=== PATIENT | female | born 1980 | race Caucasian/White ===

== ENCOUNTER → 2020-09-16 15:07 | Outpatient (CLI) | payer OTHER, SELFPAY ==
[2020-09-16 18:07] LABS: CRP < 2.90 mg/L (0.0-3.0)
[2020-09-19 16:08] LABS: Endomysial Antibody IgA Negative (Negative)
[2020-09-19 16:48] LABS: Immunoglobulin A 290 mg/dL (87-352); t-Transglutaminase IgA <2 U/mL (0-3)
== END ==
PROVIDERS: PCP Family Medicine; Referring Provider Internal Medicine Gastroenterology; Visit Provider Internal Medicine Gastroenterology
DX: R19.7 Diarrhea, unspecified (principal)
CPT/HCPCS: 36415; 82784; 83516; 86140; 86255

== ENCOUNTER 2021-10-13 11:00 | Emergency (ER) | payer OTHER, SELFPAY ==
[2021-10-13 11:01] VITALS: BP 153/87; PULSE 77; RESP 13; TEMP 35.2; O2SAT 97; BMI 42.7
--- NOTE | 2021-10-13 11:53 | RAD_ITS ---
STUDY: X-RAY CHEST REASON FOR EXAM: Female, 41 years old. Chest pain and shortness of breath. TECHNIQUE: PA and lateral views of the chest. COMPARISON: None. FINDINGS: EKG electrodes are seen. Mild elevation of the anterior aspect of the right hemidiaphragm. Calcified granulomas. There is no demonstrated pleural abnormality. Normal size heart. Normal mediastinum and dulce. Normal visualized pulmonary arteries. Normal visualized aortic arch and descending thoracic aorta. There are degenerative changes of the visualized thoracic spine. Normal visualized ribs, clavicles, and shoulders. There is no demonstrated abnormality of the visualized soft tissue structures of the upper abdomen. RAD/Chest PA and Lateral IMPRESSION: Normal x-ray examination of the chest. Electronically Signed: Kojo Cornejo MD at 12:27 EST ,
--- NOTE | 2021-10-13 11:53 | EKG12_ITS ---
Test Reason : CP Blood Pressure : / mmHG Vent. Rate : 072 BPM Atrial Rate : 072 BPM P-R Int : 144 ms QRS Dur : 078 ms QT Int : 396 ms P-R-T Axes : 031 030 025 degrees QTc Int : 433 ms Normal sinus rhythm Normal ECG Confirmed by LACHELLE JEAN, GENARO ([id number]), graphic editor ALICIA CARDENAS ([id number]) on 10/16/2021 11:12:00 AM Referred By: LEON/DOC Confirmed By:GENARO LAROSE MD
[2021-10-13] MEDS: Dicyclomine 10 MG Capsule 20 MG PO (12:03)
[2021-10-13] MEDS: Ketorolac 15 MG/ML Vial IV (12:03)
[2021-10-13 12:06] VITALS: BP 150/99; PULSE 74; RESP 12; O2SAT 97
--- NOTE | 2021-10-13 12:06 | EDS_ITS ---
HPI History of Present Illness Chief Complaint: Chest Pain Onset/Context/Timing Onset: Weeks (2) Activity at onset: gradual, onset and activity on onset (Random) Timing: Intermittent and Lasts (Couple hours most of the time but since last night, has been there over 12 hours now today) Quality: Positive for Pressure and Stabbing Location: Substernal, Right Parasternal and - (Radiating into right upper back) Worsened By: - (Lying down, stress) Relieved By: - (Taking deep breaths) Associated Symptoms: Positive for Cough and Acid Reflux (I have acid reflux sometimes, I am on omeprazole for it; not necessarily associated with the symptoms though); Negative for Nausea, Vomiting, Diaphoresis, Dyspnea, Fever, Lightheadedness and Palpitations Narrative Narrative: Patient having episodes of chest pain off-and-on for the past 2 weeks. This episode has been there since last night, she said it got worse last night and persisted all morning this morning. It occasionally is pleuritic but for the most part nonpleuritic. She states lying down makes it worse and also when she gets stressed, then she takes some deep breaths and seems to calm down and it eases off. She states since last night and this morning, she has had spasms in her upper abdomen that she states is not really painful but hard to explain. She has however had some sharp pains in her right upper quadrant with a couple of these episodes in the past 2 weeks. She has had a prior cholecystectomy in addition to an appendectomy. She states she had an ablation 8 years ago of an accessory pathway in her heart because she was having bigeminy/PVCs. She has not had any problems since then and no other heart problems. She has had a minor cough for the past few days but not for 2 weeks, it has been rarely productive of a little bit of phlegm but no hemoptysis. She is not a smoker. Prior Similar Symptoms: No Recent Illness/Hospitalization: No CVD Risk Factors: Positive for - (Obese); Negative for Hypertension, Diabetes, Hypercholesterolemia, Family History 1' </=55 and Smoking PE Risk Factors: Negative for Recent Travel/Surgery, Recent Immobilization, Prior DVT or PE, Cancer and OCP + Smoking + >/=35 [facility] Medical History (Updated 10/13/21 @ 13:[address] Kenneth Worthy MD) Anxiety GERD (gastroesophageal reflux disease) Hypothyroid Home Medications L norgest/e.estradiol-e.estrad [Ashlyna] tab 10/13/21 [History Last Taken Unknown] escitalopram oxalate mg 10/13/21 [History Last Taken Unknown] levothyroxine 10/13/21 [History Last Taken Unknown] omeprazole 10/13/21 [History Last Taken Unknown] Allergy/AdvReac Type Severity Reaction Status Date / Time Penicillins AdvReac Hives Verified 10/13/21 11:08 Surgical History History of cardiac radiofrequency ablation Social History Smoking Status: Never smoker ROS ROS ED Constitutional Constitutional ED: Denies chills or fever(s) Eyes Eyes: Denies change in vision or diplopia ENT ENT ED: Denies rhinorrhea or sore throat Cardiovascular Cardiovascular: Reports chest pain; Denies orthopnea or palpitations Respiratory/Chest Respiratory/Chest: Reports cough; Denies dyspnea or orthopnea Gastrointestinal Gastrointestinal: Reports as per HPI and abdominal pain; Denies diarrhea, nausea or vomiting Genitourinary Genitourinary ED: Denies dysuria or hematuria Musculoskeletal Musculoskeletal: Denies back pain or neck pain Integumentary Denies abscess or rash Neurologic Neurologic: Denies headache(s), paresthesias or weakness Psychiatric Psychiatric: Denies anxiety or suicidal thoughts EXAM Physical Exam Const Vital Signs: 10/13/21 11:01 10/13/21 11:10 10/13/21 12:06 Temperature 95.3 F L Temperature Source Temporal Pulse Rate 77 74 Respiratory Rate 13 12 Respiratory Effort Normal Non-Labored Blood Pressure 153/87 H 150/99 H Blood Pressure Mean 109 116 Pulse Ox 97 97 Oxygen Delivery Method Room Air Room Air Positive well nourished, well developed and obese General Appearance ED: well developed and NAD Nutritional Appearance: obese HEENT Reports moist mucous membranes normocephalic and atraumatic Eyes PERRL and EOMs intact bilaterally Neck full ROM and supple Resp normal respiratory effort and clear to auscultation bilaterally Cardio regular rate, regular rhythm and no murmurs Rate: Negative for tachycardic GI non-distended GI Narrative: Mild right upper quadrant and epigastric tenderness no guarding or rebound or Blake's no other areas of tenderness Auscultation: normoactive bowel sounds Palpation: soft Back/Spine no CVA tenderness General Back: other FROM Extremity normal to inspection General Extremety ED: Negative for edema, pulses abnormal or tenderness General Extremity: Negative for edema or pulses abnormal Neuro oriented x3, CN's II-XII intact bilaterally and no sensory deficits noted Sensorium / Orientation: awake and alert Motor Exam: strength 5/5 throughout Psych mental status grossly normal, thought process normal and cooperative Mood & Affect: anxious Skin no rashes or lesions noted and no wounds Heart Score History: Slightly/Non-Suspicious ECG: Normal Age: </= 45 years Risk Factors: 1 or 2 Risk Factors Troponin: </= Normal Limit Score: 1 MDM MDM MDM Narrative Medical decision making narrative: X-ray 2 view interpreted by myself and radiology negative for any acute. The rest of the work-up also unremarkable. While we were waiting for test to return, she was given a Bentyl and IV Toradol for discomfort, she had mild improvement but persistent symptoms; the etiology is unknown but since she is also having simultaneous abdominal symptoms, it is possible this is all GI-related, certainly I am not telling the patient it is for sure but since all of her tests are normal and her PERC score is 0, I do not think she needs further emergent work-up here nor admission to the hospital. I think it is safe for her to follow-up as an outpatient she is in agreement with that plan Also with continuous discomfort last night, and all morning I do not think she needs a second troponin today, the first 1 which is in single digits I think is adequate. Lab Data Attestation: I reviewed the patient's lab results. Labs: Laboratory Results - last 24 hr 10/13/21 10/13/21 11:30 11:30 WBC 8.3 RBC 4.89 Hgb 14.6 Hct 42.9 MCV 87.7 MCH 29.9 MCHC 34.0 RDW Std Deviation 40.1 RDW Coeff of Maggi 12.6 Plt Count 305 MPV 9.7 Immature Gran % (Auto) 0.700 Neut % (Auto) 63.0 Lymph % (Auto) 27.7 [place] % (Auto) 6.8 Eos % (Auto) 1.4 Baso % (Auto) 0.4 Absolute Neuts (auto) 5.3 Absolute Lymphs (auto) 2.31 Nucleated RBC % 0 Sodium 139 Potassium 4.1 Chloride 111 H Carbon Dioxide 25.0 Anion Gap 3 L BUN 10 Creatinine 0.66 Estim Creat Clear Calc 94.91 Est GFR (MDRD) Af Amer 126 Est GFR (MDRD) Non-Af 104 BUN/Creatinine Ratio 15.2 Glucose 84 Calcium 9.3 Total Bilirubin 0.30 AST 42 H ALT 56 Alkaline Phosphatase 58 Troponin I High Sens 4 Total Protein 7.3 Albumin 3.2 Globulin 4.1 Albumin/Globulin Ratio 0.8 L Radiography Diagnostic Testing: Clinical Impression(s) from Imaging Studies Chest X-Ray 10/13/21 11:53 IMPRESSION: Normal x-ray examination of the chest. Electronically Signed: Kojo Cornejo MD at 12:27 EST , EKG Initial EKG: Attestation: I personally reviewed and interpreted this EKG as follows: Interpretation: Sinus Rhythm and No Acute Injury Pattern Comments: Normal EKG Discharge Plan Triage Chief Complaint: Chest Pain ED Provider: Kenneth Worthy Dx/Rx/DC Orders Clinical Impression: Chest pain, unspecified, Intermittent upper abdominal pain Instructions: ED Chest Pain, Noncardiac Prescriptions: No Action levothyroxine 25 mcg tablet RF: 0 omeprazole 20 mg capsule,delayed release(DR/EC) RF: 0 escitalopram oxalate 10 mg tablet RF: 0 L norgest/e.estradiol-e.estrad [Ashlyna] 0.15 mg-30 mcg (84)/10 mcg (7) tablets,dose pack,3 month RF: 0 Primary Care Provider: Karena Alvarez Referrals: Karena Alvarez DO [Primary Care Provider] - 3-5 Days Activity Restrictions/Additional Instructions: Until you follow-up double your daily omeprazole, taking 1 pill in the morning and 1 pill at night. Disposition Disposition: Home, Self Care
[2021-10-13 12:07] LABS: Absolute Lymphocyte Count 2.31 X10^3/uL (0.83-4.51); Absolute Neutrophil Count 5.3 X10^3/uL (2.0-7.7); Basophil# 0.03 X10^3/uL; Basophil% 0.4 % (0-1); Eosinophil# 0.12 X10^3/uL; Eosinophils% 1.4 % (0-5); Hematocrit 42.9 % (37-47); Hemoglobin 14.6 g/dL (12.0-15.0); Lymphocyte # 2.31 X10^3/ul (0.83-4.51); Lymphocyte % 27.7 % (19-41); Mean Corpuscular Hgb 29.9 pg (27.0-32.0); Mean Corpuscular Volume 87.7 fL (81-99); Mean Platelet Vol. 9.7 fl (6.2-12.0); Monocyte# 0.57 X10^3/uL; Monocyte% 6.8 % (0-10); NRBC Flagged by Analyzer 0 % (0-5); Neutrophil # 5.25 X10^3/uL (2.7-7.7); Platelet Count 305 K/mm3 (150-450); RBC Distribution Width CV 12.6 % (11.6-14.6); RBC Distribution Width SD 40.1 fl (35.1-43.9); Red Blood Count 4.89 M/mm3 (4.2-5.4); White Blood Count 8.3 K/mm3 (4.4-11.0)
[2021-10-13 12:19] LABS: ALB/GLOB Ratio 0.8 RATIO (0.9-2.4); AST(SGOT) 42 U/L (15-37); Alanine Aminotransfer ALT/SGPT 56 U/L (13-56); Albumin, Serum 3.2 g/dL (3.2-5.0); Alkaline Phosphatase 58 U/L (45-117); Anion Gap 3 (5-15); BUN 10 mg/dL (7-18); BUN/Creat Ratio 15.2 RATIO (10-20); Calcium,Total 9.3 mg/dL (8.5-10.1); Chloride 111 mmol/L (98-107); Creatinine, Serum 0.66 mg/dL (0.55-1.02); EST Glomerular Filtration Rate 104 mL/min (>60); Est Glom Filt Rate - Afr Amer 126 mL/min (>60); Estimated Creatinine Clearance 94.91 ml/min; Globulin 4.1 g/dL (2.2-4.2); Glucose 84 mg/dL (74-106); Potassium 4.1 mmol/L (3.5-5.1); Protein, Total 7.3 g/dL (6.4-8.2); Sodium Level 139 mmol/L (136-145); Troponin-I HS 4 pg/mL (3.0-54.0)
[2021-10-13] MEDS: Mag Hydrox/Al Hydrox/Simeth 30 ML UDC PO (13:55)
[2021-10-13 13:57] VITALS: BP 154/96; RESP 15; O2SAT 99
== END 2021-10-13 14:11 | disposition home or self-care (01) ==
PROVIDERS: Emergency Provider Emergency Medicine; PCP Family Medicine; Visit Provider Emergency Medicine
DX: R10.10 Upper abdominal pain, unspecified (principal); E66.9 Obesity, unspecified; R07.9 Chest pain, unspecified; K21.9 Gastro-esophageal reflux disease without esophagitis; E03.9 Hypothyroidism, unspecified; F41.9 Anxiety disorder, unspecified
CPT/HCPCS: 71046; 80053; 84484; 85025; 93005; 96374; 99285; A4216

== ENCOUNTER 2022-08-02 06:32 | Day surgery (SDC) | payer OTHER, SELFPAY ==
[2022-07-31 07:46] LABS: Magnesium 1.9 mg/dL (1.6-2.6)
--- NOTE | 2022-08-01 13:16 | PCM.HP.BLA ---
History and Physical Date of Admission: 08/02/22 Pre-Op History and Physical ? HPI: The patient is a 42 year old female presenting for discussion regarding abnormal uterine bleeding, pelvic pain and dysmenorrhea. Patient has been taking Aygestin with minimal improvement over the last few months. Patient would like to proceed with surgical management at this time. ? Pre-operative visit. She is scheduled for TLH, Bilateral salpingectomy, Cysto, for AUB, pelvic pain, dysmenorrhea on 08/02/22. Procedure discussed along with risks, benefits and complications. Other alternatives discussed for management. Consent form signed? Yes. ? ? PAST MEDICAL HISTORY PAST MEDICAL HISTORY Diagnosis Date ? Abdominal pain, right upper quadrant ? ? Biliary dyskinesia 03/09/2010 ? Nausea alone ? ? PVC (premature ventricular contraction) ? ? TIA (transient ischemic attack) ? ? ? PAST SURGICAL HISTORY PAST SURGICAL HISTORY Procedure Laterality Date ? APPENDECTOMY ? ? ? DELIVERY ONLY ? X 2 ? , low transverse ? COLONOSCOPY ? 2009 ? EGD TRANSORAL BIOPSY SINGLE/MULTIPLE ? 02/27/2010 ? EGD TRANSORAL BIOPSY SINGLE/MULTIPLE ? 03/22/10 ? ENDOMETRIAL BX W/WO ENDOCERVIX BX W/O DILAT SPX ? 02/2011 ? DUB ? LAPS SURG CHOLECYSTECTOMY W/CHOLANGIOGRAPHY ? 03/09/2010 ? NOVASURE ? 03/2011 ? ? ? CURRENT MEDICATIONS Current Outpatient Medications Medication Sig Dispense Refill ? oxyCODONE-acetaminophen (PERCOCET) 5-325 mg tablet Take 1 tablet by mouth every 6 hours as needed for pain. FOR PAIN. 15 tablet 0 ? dicyclomine (BENTYL) 20 mg tablet ? ergocalciferol 50,000 unit capsule (VITAMIN D2, DRISDOL) ? hydroCHLOROthiazide (HYDRODIURIL, ESIDRIX) 25 mg tablet 25 mg. ? ? ? lisinopril (ZESTRIL, PRINIVIL) 10 mg tablet 10 mg. ? ? ? lysine 1,000 mg tab ? norethindrone (AYGESTIN) 5 mg tablet take 1 tablet by mouth once daily 30 tablet 5 ? escitalopram oxalate (LEXAPRO) 10 mg tablet take 1 tablet by mouth once daily 30 tablet 2 ? levothyroxine (SYNTHROID) 25 mcg tablet Take 25 mcg by mouth once daily. ? ? ? cholecalciferol, vitamin D3, (VITAMIN D-3) 10 mcg (400 unit) cap ? Dose : 2,000 Int unit =, Oral, qWeek, 0 Refill(s) ? ? ? Omeprazole 20 mg TbEC ? APPLE CIDER VINEGAR ORAL Take by mouth. ? ? ? No current facility-administered medications for this visit. ? ? ALLERGIES: Penicillins ? PERSONAL HISTORY: SOCIAL HISTORY Social History ? Tobacco Use ? Smoking status: Never ? Smokeless tobacco: Never Substance Use Topics ? Alcohol use: No ? ? Comment: rarely ? Drug use: No ? FAMILY HISTORY: FAMILY HISTORY FAMILY HISTORY Problem Relation Age of Onset ? Cancer Paternal Grandfather ? ? Cancer Paternal Aunt ? ? Cancer Maternal Uncle ? ? ? REVIEW OF SYMPTOMS: negative except as noted above PHYSICAL EXAMINATION: ? VITALS: Blood pressure 122/80, weight 254 lb (115.2 kg), last menstrual period 07/07/2022. ? GENERAL: The patient is well nourished, well hydrated in no acute distress. , The patient is oriented to time, place, and person. NECK: full range of Motion Full medical clearance obtained by PCP on 07/05/2022 ? IMPRESSION: Abnormal uterine bleeding, dysmenorrhea, pelvic pain s/p endometrial ablation ? PLAN: Total laparoscopic hysterectomy, bilateral salpingectomy and cystoscopy ? Pt has been counseled on risks/benefits and alternatives of surgery including but not limited to anesthesia, bleeding, infection, injury to pelvic structures including bowel, bladder, ureters and vessels. Pt wishes to proceed with surgery at this time. Possible need for blood transfusion reviewed the patient. We also reviewed the possibility of unrecognized injuries that could present in the future. This could include fistula formation as well as injuries to other structures- pt wishes to proceed. ? Consent signed. PRE and POST op instructions reviewed. POST OP MEDS GIVEN ? ? I have reviewed and updated past medical and surgical history, medications and allergies Eryn Andrade MD ?5:17 PM Office Visit on 07/16/2022 Office Visit on 07/16/2022 Note shared with patient
[2022-08-02] VITALS (15 sets, daily range): BP systolic 113–153; BP diastolic 61–104; PULSE 82–125; RESP 12–18; TEMP 36.5–37.5; O2SAT 4–99; BMI 43.9
[2022-08-02] MEDS: Lactated Ringers 1,000 ML 40 ML IV (07:25)
[2022-08-02] MEDS: Magnesium 1 GM over 15 mins IV (07:30)
[2022-08-02] MEDS: Scopolamine 1mg/72hr Patch 1 PATCH TD (07:38)
[2022-08-02] MEDS: Enoxaparin 40 MG/0.4 ML Syringe SC (07:39)
[2022-08-02] MEDS: Gabapentin 600 MG Tablet PO (07:40)
[2022-08-02] MEDS: Celecoxib 200 MG Capsule 400 MG PO (07:41)
[2022-08-02] MEDS: Phenazopyridine 95 MG Tablet 190 MG PO (07:41)
[2022-08-02] MEDS: Acetaminophen 500 MG Tablet 1000 MG PO (07:42)
[2022-08-02 07:52] LABS: Internal QC Validated? YES +Cl - CLEAR BKGD; Pregnancy, Urine Negative Negative
--- NOTE | 2022-08-02 08:49 | DCINST_ITS ---
Discharge Instructions Diet Discharge Diet: No restrictions Activity Discharge Activity: May Not Drive (while taking narcotics. may drive when pain controlled. ) and May Shower Return to work on:: 02/23/21 May shower in (days): 1 May resume sexual activity in: 6-8 weeks Weight Bearing Status: Full weight bearing Lifting Restrictions: 20 Additional Activity Instructions:: NOTHING IN THE VAGINA x 6-8 weeks. Dressing / Incision Call your doctor if your incision/area has: Continuous Slow Oozing, Sudden Increased Bleeding, Increased Pain/ Swelling, Increased Redness, Foul Smelling Discharge and Swelling at the incision site Call your doctor if you observe: Fever of 101 or Higher, Inability to have a bowel movement, Using more than 1 pad per hour and Uncontrolled pain Change Dressing in: leave in place till F/U (you have skin glue over incision sites- do not pick off) Cleanse incision/area with: Soap & Water, Keep Dressing Clean & Dry and - (you may let soap and water run over incision sites and dab dry. ) Follow Up Care Please Follow Up With: Eryn Burgess MD When: 2 weeks as scheduled for post op visit Test Results: Test results from this visit will be discussed in further detail at your follow- up appointment, if applicable. Discharge Plan Admission Attending Provider: Eryn Burgess Primary Care Provider: Karena Alvarez Consulting Providers: Cristiano Fisher Discharge Orders/Prescriptions Prescriptions: No Action levothyroxine 25 mcg tablet 50 mcg PO DAILY Label Comments: take 1 tablet by mouth once daily omeprazole 20 mg capsule,delayed release(DR/EC) 20 mg PO DAILY escitalopram oxalate 10 mg tablet 10 mg PO DAILY L norgest/e.estradiol-e.estrad [Ashlyna] 0.15 mg-30 mcg (84)/10 mcg (7) tablets,dose pack,3 month 1 tab PO DAILY Label Comments: take 1 tablet by mouth once daily lisinopril 10 mg Tablet 10 mg PO DAILY hydrochlorothiazide 25 mg Tablet 25 mg PO DAILY Referrals / Follow Up: Karena Alvarez DO [Primary Care Provider] - Disposition Disposition (needs filled in before D/C Order can be placed): Home, Self Care
--- NOTE | 2022-08-02 08:49 | PCM.OPRPT ---
Report of Operation Date of Procedure: 08/02/22 Pre-Operative Diagnosis: Dysmenorrhea, AUB, S/p endometrial ablation Post-Operative Diagnosis: Same Surgery/Procedure Performed:: TLH, bilateral salpingectomy, Cystoscopy. Description of Surgical Findings:: normal ovaries and tubes. Bladder adhesions to lower uterine segment. Surgeon: Eryn Burgess reconciliation accountant: Mary Montoya Type of Anesthesia: General and Local Special Medications: 0.25% marcaine Specimen's removed: uterus, cervix, bilateral tubes Drains: none Estimated Blood Loss (mL): 30 Fluids Replaced: 1400 Description of Procedure: Patient take to OR and prepped and draped in usual sterile fashion in dorsal lithotomy position with her arms tucked in a neurologically safe and neutral position. The uterus sounded to 7.5 cm. The senior oracle soa developer uterine manipulator was sutured into place at 12 position and cardoso was placed. Attention was turned to the abdomen. All port sites were infiltrated with .25%marcaione before the incisions were made. The anterior abdominal wall was tented up with towel clamps and using a direct entry approach a 5 mm supraumbilical port was placed. Intraperitoneal placement was confirmed with the laparoscope and the pneumoperitoneum was created. The patient was placed in Trendelenburg and 5 mm right and left lower quadrant ports were placed under direct visualization. Air seal rapid insufflator was used. The bowel was swept away. Ovaries appeared normal. The mesosalpinx starting at fimbriated end were grasped, clamped, sealed and transected with the Ligasure. The round ligaments were divided. The anterior peritoneum was dissected down to create the bladder flap with blunt dissection and the LigaSure. The uterine arteries were isolated, clamped, sealed and cut. There was minimal back bleeding from the uterus. Straight bites on uterine arteries performed to drop them off the cuff. The senior oracle soa developer manipualtor was used as guide to create colpotomy using monopolar tip of ligasure. once specimen was removed attention was turned to vaginal portion. The specimen was bivalved in order to be removed from vagina. It was then handed off. The cuff was closed with interrupted 0-vicryl figure of 8 sutures. Cystoscopy was performed bilateral ureters were visualized with good efflux. bladder was intact. cardoso replaced and sponge stick placed in vagina. The pneumoperitoneum was recreated small oozing at anterior cuff. cauterized with monopolar tip of ligasure- then fibrilar and elvia placed. Excellent hemostasis appreciated. the cuff and pedicles were hemostatic. Elvia was placed over cuff and pedicles. The skin incisions were closed with skin glue and 3-0 monocryl in the LLQ port site. The vaginal sweep was completed by me. Catheter removed. Dr. Montoya assisted with manipulation of camera, uterus and retraction during closing. Grafts/Implants Used: none Grafts/Implants Used: none Procedure Start Time: 09:28 Procedure Stop Time: 11:23 Complications none Admit VTE Documentation VTE Present on Admission: Yes VTE Mechan Device Prophylaxis: SCD's VTE Pharm Prophylaxis ordered?: Yes
--- NOTE | 2022-08-02 08:50 | HYST_PTH ---
PATIENT: MANUEL ORNELAS [place] [facility] [id number] AGE/SX: 42/F ROOM: RE08/02/[address]: Dr. Eryn Burgess, MDDOB: 1980 BED: DIS: 08/02/2022 SPEC #: [id number] RECD: 08/02/22 16:40 STATUS: MIAH EYAD #: [id number] ZAIRA: 08/02/22 08:[address]: Eryn Burgess DEPT: SURGICAL PATHOLOGY RECD BY: Farhana Damon ENTERED: 08/03/22 09:00 SP TYPE: HYSTERECT OTHR DR: MD Dr. Karena Wade DO Tissues: Uterus, NOS Procedures: Surgery Specimen Level V HEADER OPERATION: ERAS, total laparoscopic hysterectomy, salpingectomy PRE-OP DIAGNOSIS: Abnormal uterine bleeding, dysmenorrhea, pelvic pain status post endometrial ablation TISSUE SUBMITTED: Uterus, cervix, bilateral fallopian tubes MICROSCOPIC DIAGNOSIS Uterus, hysterectomy: Cervix ? nabothian cysts. Endometrium ? weakly proliferative to inactive endometrium and consistent focal exogenous hormonal change. Myometrium ? leiomyomas and focal adenomyosis. Right and left fallopian tubes - No pathologic change. AM:[place] 08/07/2022 MICROSCOPIC DESCRIPTION Slides are reviewed. GROSS DESCRIPTION Received in fixative is one container labeled with the patient's name and designated uterus, cervix, bilateral fallopian tubes. The specimen consists of a hysterectomy specimen previously, partially opened and detached bilateral fallopian tubes. The uterus with cervix and two detached pieces of tissue weighs in aggregate 132 gm and measures 10.5 x 7 x 5 cm. The serosal surface is peter, glistening. The ectocervical mucosa is unremarkable. The external os is circular in contour. The endocervical canal measures 3 cm in length and the endocervical mucosa is unremarkable. The endometrial cavity is completely obliterated in the proximal portion and narrow and measures 2.5 cm in length and up to 1 cm in width. The endometrium is peter, glistening without any mass lesion and measures <0.1 cm in thickness. Sections of the uterine wall reveal multiple nodular masses, largest measuring 1 cm in greatest diameter. The uterine wall measures up to 2.5 cm in thickness. The fallopian tubes are not identified as right or left and each measures 4 cm in diameter and 0.5 cm in length. Sections reveal unremarkable cut surfaces. Bomb Squad Commander sections are submitted in nine cassettes as follows: 1 - anterior cervix, 2 - posterior cervix, 3 & 4 - anterior uterine wall, 5 & 6 - posterior uterine wall, 7 - nodular masses, 8 - one fallopian tube, 9 - second fallopian tube. / RADHA:[place] 08/03/2022 TC:1 CPT: 71023
[2022-08-02 09:06] LABS: Bedside Glucose 182 mg/dL (74-106)
[2022-08-02] MEDS: Cefazolin 2 GM in 0.9% Normal Saline 100 ML IV (09:15)
[2022-08-02] MEDS: dexAMETHasone 10 MG/ML Vial 8 MG IV (09:22)
[2022-08-02] MEDS: Lactated Ringers @ 70 MLS/HR 70 ML IV ×2 (10:10→14:33)
[2022-08-02] MEDS: Ondansetron 4 MG/2 ML Vial IV (12:36)
[2022-08-02] MEDS: HYDROcodone Bitartrate/Apap 5/325 Tablet PO (15:05)
== END 2022-08-02 16:01 | disposition home or self-care (01) ==
LOC: SDC 06:32 → AC 06:33
PROVIDERS: Anesthesiology; PCP Family Medicine; Referring Provider Obstetrics & Gynecology; Visit Provider Obstetrics & Gynecology
PROC: 0UT94ZZ Resection of Uterus, Percutaneous Endoscopic Approach (ICD-10-PCS; CPT 58571; principal; 2022-08-02 08:30)
DX: N93.9 Abnormal uterine and vaginal bleeding, unspecified (principal); Z30.49 Encounter for surveillance of other contraceptives; N94.6 Dysmenorrhea, unspecified; Z86.73 Personal history of transient ischemic attack (TIA), and cerebral infarction without residual deficits; I10 Essential (primary) hypertension; E03.9 Hypothyroidism, unspecified; G47.30 Sleep apnea, unspecified; Z99.89 Dependence on other enabling machines and devices
CPT/HCPCS: 58571; 00840; 36415; 81025; 82962; 83735; 88307; J7120; J2405; J3475

== ENCOUNTER → 2022-12-11 | Outpatient (CLI) | payer OTHER, SELFPAY ==
[2022-12-11 13:00] VITALS: PULSE 100; PULSE 101; PULSE 102; PULSE 105; PULSE 110; PULSE 118; PULSE 96; O2SAT 95; O2SAT 96; O2SAT 97; O2SAT 98
--- NOTE | 2022-12-11 14:16 | WT_ITS ---
PSN 6 Minute Walk Test 6 Minute Walk Test 6 Minute Walk Test: 6 Minute Walk Test PSN:6-Minute Walk Test Start: 12/11/22 13:10 Freq: Status: Active Protocol: [id number].[id number] Document 12/11/22 13:00 [facility] (Rec: 12/11/22 13:13 [facility] [id number]) 6 Minute Walk Test Date Performed 12/11/22 Time Performed 13:00 Height 5 ft 4 in Weight: 112.945 kg Weight in Pounds 249.[address]: Dr Henry Assistive device used: None Pre-test Oxygen Delivery Method Room Air Pulse Ox (%) 95 Pulse Rate (60-100 beats/min) 102 H Dyspnea Jina Scale (0-10) 0.5 Exertion Jina Scale (6-20) 6 1st minute Oxygen Delivery Method Room Air Pulse Ox (%) 95 Pulse Rate (60-100 beats/min) 100 2nd minute Oxygen Delivery Method Room Air Pulse Ox (%) 96 Pulse Rate (60-100 beats/min) 105 H 3rd minute Oxygen Delivery Method Room Air Pulse Ox (%) 97 Pulse Rate (60-100 beats/min) 118 H 4th minute Oxygen Delivery Method Room Air Pulse Ox (%) 95 Pulse Rate (60-100 beats/min) 110 H 5th minute Oxygen Delivery Method Room Air Pulse Ox (%) 96 Pulse Rate (60-100 beats/min) 96 6th minute Oxygen Delivery Method Room Air Pulse Ox (%) 96 Pulse Rate (60-100 beats/min) 118 H Dyspnea Jina Scale (0-10) 3 Exertion Jina Scale (6-20) 13 Reported Symptoms Increased Work of Breathing Post-test Oxygen Delivery Method Room Air Pulse Ox (%) 98 Pulse Rate (60-100 beats/min) 101 H Full Laps Walked 19 Partial Lap, Number of Tiles Walked 14 Total Distance Walked (ft) 1135 Interpretation Interpretation: The patient was noted to have a saturation of 95% on room air at rest. The patient did have persistent tachycardia throughout testing with a peak heart rate of 118 bpm. Overall, the patient was able to travel 1135 feet over the course of 6 minutes on room air with no assistive devices or breaks. These findings are consistent with a cardiovascular limitation exercise tolerance. Recommendations Recommendations: No supplemental oxygen is indicated at this time
== END | disposition home or self-care (01) ==
LOC: PSN 12:42
PROVIDERS: PCP Family Medicine; Referring Provider Internal Medicine Critical Care Medicine; Visit Provider Internal Medicine Critical Care Medicine
DX: G47.33 Obstructive sleep apnea (adult) (pediatric) (principal); U09.9 Post COVID-19 condition, unspecified
CPT/HCPCS: 94618

== ENCOUNTER → 2022-12-21 | Outpatient (CLI) | payer OTHER, SELFPAY ==
--- NOTE | 2022-12-22 07:45 | PFT ---
INTRODUCTION: The patient is a 42-year-old female who presents for pulmonary function studies secondary to a diagnosis of OBDULIA. Respiratory therapy reported good patient effort. Bronchodilators were used during testing. INTERPRETATION: Forced expiration spirometry demonstrates no evidence of a large airways obstructive ventilatory defect. There was no significant response to aerosolized bronchodilators. Spirograms are of good quality and plateau normally. The respiratory flow-volume loop is normal. Body plethysmography was performed and revealed a decreased TLC to 3.74 L, 74% of predicted, indicative of a mild restrictive ventilatory impairment. Diffusing capacity by single breath CO is within normal limits. IMPRESSION: Mild restrictive ventilatory impairment.
== END | disposition home or self-care (01) ==
LOC: PSN 12:36
PROVIDERS: PCP Family Medicine; Referring Provider Internal Medicine Critical Care Medicine; Visit Provider Internal Medicine Critical Care Medicine
DX: U09.9 Post COVID-19 condition, unspecified (principal); G47.33 Obstructive sleep apnea (adult) (pediatric)
CPT/HCPCS: 94060; 94726; 94729

== ENCOUNTER → 2023-01-01 | Outpatient (CLI) | payer OTHER, SELFPAY | END | disposition home or self-care (01) | LOC: SL 13:17 | PROVIDERS: PCP Family Medicine; Visit Provider Internal Medicine Critical Care Medicine | DX: G47.33 Obstructive sleep apnea (adult) (pediatric) (principal); U09.9 Post COVID-19 condition, unspecified | CPT/HCPCS: 98960; G0463 ==

== ENCOUNTER → 2023-09-10 | Outpatient (CLI) | payer OTHER, SELFPAY ==
[2023-09-10 12:43] VITALS: PULSE 100; PULSE 101; PULSE 104; PULSE 107; PULSE 108; PULSE 109; O2SAT 94; O2SAT 95; O2SAT 96; O2SAT 98; O2SAT 99
--- OUTSIDE RECORDS SUMMARY | 2023-09-10 16:40 | XMS RPT_ITS | CCD ---
Author Name Unknown Address [id number] [place] [address] Organization [facility] Care Team Providers Care Carbonizer Tester Name Role Phone MAME BAIG DO Primary Care Physician Unavailable Primary Care Provider Unavailabl e Unavailable Primary Care Provider Unavailabl e Unavailable Primary Care Provider Unavailabl e NEYHART FULLER, SOCORRO Referring Unavail able NEYHART FULLER, SOCORRO Attending Unavail able NEYHART FULLER, SOCORRO Attending Unavail able NEYHART FULLER, SOCORRO Referring Unavail able NEYHART FULLER, SOCORRO Attending Unavail able NEYHART FULLER, SOCORRO Attending Unavail able NEYHART FULLER, SOCORRO Referring Unavail able NEYHART FULLER, SOCORRO Attending Unavail able SUNI LANIER Attending Unavailable NEYHART FULLER, SOCORRO Attending Unavail able NEYHART FULLER, SOCORRO Referring Unavail able NEYHART FULLER, SOCORRO Attending Unavail able ALL BAIG DOISTIN Primary Care Unavailable ALL BAIG DOISTIN Attending Unavailable ALL BAIG DOISTIN Attending Unavailable JOVANNI DO, MAME Primary Care Unavailable JOVANNI DO, MAME Primary Care Unavailable JOVANNI DO MAME Attending Unavailable JOVANNI DO, MAME Primary Care Unavailable JOVANNI MEYER MAME Attending Unavailable ARIANA GRAHAM MD Attending Unavailable JOVANNI DO, MAME Primary Care Unavailable JOVANNI DO, MAME Primary Care Unavailable ALL BAIG DOISTIN Attending Unavailable JOVANNI DO MAME Attending Unavailable JOVANNI DO, MAME Primary Care Unavailable JOVANNI DO, MAME Primary Care Unavailable JOVANNI MEYER MAME Attending Unavailable LAUREN RAMOS Attending Unavail able JOVANNI DO, MAME Primary Care Unavailable JOVANNI DO, MAME Primary Care Unavailable JOVANNI DO, MAME Attending Unavailable JOVANNI DO, MAME Attending Unavailable JOVANNI DO, MAME Primary Care Unavailable JOVANNI DO, MAME Primary Care Unavailable JOVANNI DO, MAME Attending Unavailable JOVANNI DO, MAME Primary Care Unavailable CONTRERAS DOKAYODE Attending Unavailable JOVANNI DO, MAME Attending Unavailable JOVANNI DO, MAME Primary Care Unavailable JOVANNI DO, MAME Attending Unavailable JOVANNI DO, MAME Primary Care Unavailable JOVANNI DO, MAME Attending Unavailable JOVANNI DO, MAME Primary Care Unavailable Allergies Allergy Classification Reported Allergen(s) Allergy Type Date of Onset Reaction(s) Facility (14 sources) Penicillin; Translations: [penicillin] Drug Allergy [facility] (2 sources) Penicillins; Translations: [PENICILLINS] Drug Intolerance 0 [facility] (19 sources) Penicillins Drug Intolerance 0 [facility] Medications Current Medications Medication Drug Class(es) Dates Sig (Normalized) Sig (Original) Albuterol (Eqv-Ventolin HFA) 90 mcg/inh inhalation aerosol (3 sources) Start: 11-15-2022 End: 01-14-2023 take 1 dose by inhalation every six hours Albuterol (Eqv-Ventolin HFA) 90 mcg/inh inhalation aerosol Dose = 2 puff(s), Inhalation, q6hr, Okay to change to formulary preferred, # 1 EA, 1 Refill(s), [facility]acy: [id number], Cough Post-COVID syndrome, 167, cm, 11/14/22 8:32:00 EDT, Height Start Date: 11/15/22 Stop Date: 01/14/23 Status: Ordered albuterol MDI (90 mcg/inh) CFC free inhalation aerosol (3 sources) Start: 05-08-2021 take 2 puff(s) by inhalation every four hours as needed for wheezing albuterol MDI (90 mcg/inh) CFC free inhalation aerosol 2 puff(s), Inhalation, q4h, PRN as needed for wheezing, # 18 gram(s), 0 Refill(s), Pharmacy: [facility] Shortness of breath, 162.6, cm, 05/08/21 9:16:00 EDT, Height, kg, 05/08/21 9:16:00 EDT, Dosing Weight Start Date: 05/08/21 Status: Ordered ascorbic acid 500 mg chewable tablet (3 sources) Vitamin C Start: 09-06-2020 Vitamin C 500 mg oral tablet, chewable Dose : 500 mg = 1 tab(s), Chewed, Daily, # 90 tab(s), 0 Refill(s) Start Date: 09/06/20 Status: Ordered Ashlyna oral tablet (1 source) Start: 10-16-2021 take 1 tablet by mouth once daily Ashlyna oral tablet take 1 tablet by mouth once daily Start Date: 10/16/21 Status: Ordered benzonatate 100 mg oral capsule (1 source) Non-narcotic Antitussive Start: 05-15-2021 End: 05-22-2021 Tessalon Perles 100 mg oral capsule Dose : 200 mg = 2 cap(s), Oral, TID, X 7 day(s), # 30 cap(s), 0 Refill(s), 05/22/21 10:06:00 EDT, Pharmacy: [facility] 162.6, cm, 05/08/21 9:16:00 EDT, Height, kg, 05/08/21 9:16:00 EDT, Dosing Weight Start Date: 05/15/21 Stop Date: 05/22/21 Status: Ordered 24 hr buPROPion hydrochloride 150 mg extended release oral tablet (2 sources) Aminoketone Start: 01-04-2023 take 1 tablet by mouth every hour, then take 2 tablets by mouth every twenty-four hours Wellbutrin XL 150 mg/24 hours oral tablet, extended release Dose : 300 mg = 2 tab(s), Oral, q24h, Increased dose-not sent in, # 90 tab(s), 1 Refill(s), Pharmacy: [facility] #[id number], Anxiety, 167, cm, 01/04/23 8:45:00 EDT, Height Start Date: 01/04/23 Status: Ordered Completed/Discontinued Medications Medication Drug Class(es) Dates Sig (Normalized) Sig (Original) acetaminophen 325 mg / HYDROcodone bitartrate 5 mg oral tablet (3 sources) Opioid Agonist Start: 11-11-2022 End: 11-14-2022 take 1 tablet by mouth every six hours as needed for pain Grundy 325- 5 mg oral tablet Dose = 1 tab(s), Oral, q6h, PRN PRN as needed for pain, # 12 tab(s), 0 Refill(s), Bronchitis, 115.6 Start Date: 11/11/22 Stop Date: 11/14/22 Status: Ordered acetaminophen 325 mg / oxyCODONE hydrochloride 5 mg oral tablet (4 sources) Opioid Agonist Start: 07-16-2022 End: 08-07-2022 take 1 tablet by mouth every six hours as needed for pain oxyCODONE-acetamino phen (PERCOCET) 5-325 mg tablet Indications: Post-op pain Take 1 tablet by mouth every 6 hours as needed for pain. FOR PAIN. 15 tablet 0 07/16/2022 08/07/2022 Discontinued Problems Active Problems Problem Classification Problem Date Documented Da te Episodic/Chronic Abdominal pain (20 sources) Right upper quadrant pain; Translations: [Right upper quadrant pain] Onset: 0 02-27-2010 Episodic Anxiety disorders (14 sources) Anxiety 02-13-2019 Chronic Cardiac dysrhythmias (14 sources) Ventricular premature beats 09-11-2017 Chronic Chronic obstructive pulmonary disease and bronchiectasis (7 sources) Bronchitis 10-15-2022 Episodic Coma; stupor; and brain damage (10 sources) Daytime somnolence 01-05-2022 Episodic Complications of surgical procedures or medical care (8 sources) Postoperative complication 07-05-2022 Episodic Conditions associated with dizziness or vertigo (9 sources) Dizziness; Translations: [Dizziness and giddiness] Onset: 3 Episodic Esophageal disorders (14 sources) Gastroesophageal reflux disease without esophagitis 04-22-2019 Chronic Essential hypertension (11 sources) Hypertensive disorder 10-16-2021 Chronic Fever of unknown origin (7 sources) Pyrexia of unknown origin 09-19-2022 Episodic Immunizations and screening for infectious disease (10 sources) Patient encounter status; Translations: [Encounter for screening for human papillomavirus (HPV)] Episodic Inflammatory diseases of female pelvic organs (3 sources) Cellulitis of vaginal cuff; Translations: [Acute vaginitis] Onset: 3 Episodic Malaise and fatigue (3 sources) Fatigue 11-20-2022 Episodic Menstrual disorders (16 sources) Irregular periods; Translations: [Dysmenorrhea] 09-06-2020 Chronic Mood disorders (20 sources) Depressive disorder; Translations: [Other specified depressive episodes] Onset: 0 05-10-2010 Chronic Mycoses (7 sources) Candidiasis of mouth 09-07-2022 Episodic Nutritional deficiencies (14 sources) Vitamin D deficiency 04-21-2019 Chronic Other ear and sense organ disorders (14 sources) Sensation of blocked ear 09-02-2019 Episodic Other female genital disorders (10 sources) Abnormal uterine bleeding; Translations: [Abnormal uterine and vaginal bleeding, unspecified] Chronic Other female genital disorders (1 source) Vaginal discharge; Translations: [Other specified noninflammatory disorders of vagina] Episodic Other female genital disorders (1 source) Other specified noninflammatory disorders of vagina; Translations: [Vaginal discharge] Onset: 3 Episodic Other gastrointestinal disorders (14 sources) Irritable bowel syndrome 09-06-2020 Chronic Other liver diseases (3 sources) Elevated liver enzymes level 11-20-2022 Episodic Other lower respiratory disease (7 sources) Cough 09-19-2022 Episodic Other nervous system disorders (4 sources) Postoperative pain ; Translations: [Other acute postprocedural pain] Episodic Other nervous system disorders (2 sources) Other acute postprocedural pain; Translations: [Post-op pain] Onset: 3 Episodic Other nutritional; endocrine; and metabolic disorders (8 sources) Body mass index 40+ - severely obese 07-05-2022 Chronic Other nutritional; endocrine; and metabolic disorders (6 sources) Morbid obesity 11-14-2022 Chronic Other screening for suspected conditions (not mental disorders or infectious disease) (9 sources) Cancer cervix screening status; Translations: [Encounter for screening for malignant neoplasm of cervix] Onset: 2 Episodic Other upper respiratory infections (7 sources) Acute upper respiratory infection 09-19-2022 Episodic Otitis media and related conditions (7 sources) Dysfunction of eustachian tube 09-19-2022 Episodic Pleurisy; pneumothorax; pulmonary collapse (6 sources) Pleurisy 11-14-2022 Episodic Residual codes; unclassified (9 sources) Obstructive sleep apnea syndrome 05-09-2022 Chronic Residual codes; unclassified (1 source) History of endometrial ablation; Translations: [Other specified postprocedural states] Episodic Residual codes; unclassified (8 sources) Preoperative state 07-05-2022 Episodic Residual codes; unclassified (3 sources) Postoperative state; Translations: [Other specified postprocedural states] Episodic Residual codes; unclassified (1 source) Other specified postprocedural states; Translations: [Post-operative state] Onset: 3 Episodic Residual codes; unclassified (1 source) Screening due 03-05-2023 Episodic Thyroid disorders (14 sources) Hypothyroidism 02-13-2019 Chronic Unclassified (8 sources) Never used tobacco 07-05-2022 Unclassified (7 sources) Cancer cervix screening status 07-17-2022 Unclassified (20 sources) Patient encounter status 07-17-2022 Viral infection (6 sources) Post-viral disorder 11-14-2022 Episodic Viral infection (13 sources) Disease caused by 2019-nCoV 05-24-2021 Past or Other Problems Problem Classification Problem Date Documented Da te Episodic/Chronic Diabetes mellitus without complication (11 sources) Hyperglycemia; Translations: [Hyperglycemia, unspecified] Onset: 01-04-2023 05-09-2022 Episodic Genitourinary symptoms and ill-defined conditions (6 sources) Asymptomatic microscopic hematuria; Translations: [Asymptomatic microscopic hematuria] Onset: 08-17-2022 Episodic Other gastrointestinal disorders (20 sources) Abdominal bloating; Translations: [Abdominal distension (gaseous)] Onset: 10-29-2012 10-29-2012 Episodic Spondylosis; intervertebral disc disorders; other back problems (20 sources) Thoracic back pain; Translations: [Pain in thoracic spine] Onset: 02-25-2014 02-25-2014 Episodic Sprains and strains (20 sources) Injury of musculoskeletal system; Translations: [Sprain of unspecified parts of thorax, initial encounter] Onset: 02-25-2014 02-25-2014 Episodic Urinary tract infections (9 sources) Hemorrhagic cystitis; Translations: [Cystitis, unspecified without hematuria] Onset: 10-31-2022 10-31-2022 Episodic Results Test Name Value Interpretation Reference Range Facil ity Vital Signs Date Time Vital Sign Value Performing Clinician Faci lity 08-29-2022 08:54-0500 Body weight 114.76 kg Socorro Fuller MD Work Phone: [facility] 08-29-2022 08:54-0500 Diastolic blood pressure 84 mm[Hg] Socorro Fuller MD Work Phone: [facility] 08-29-2022 08:54-0500 Systolic blood pressure 128 mm[Hg] Socorro Fuller MD Work Phone: [facility] 08-24-2022 15:06-0500 Body temperature 99.5 [degF] Socorro Fuller MD Work Phone: [facility] 08-24-2022 15:06-0500 Body weight 114.31 kg Socorro Fuller MD Work Phone: [facility] 08-24-2022 15:06-0500 Diastolic blood pressure 86 mm[Hg] Socorro Fuller MD Work Phone: [facility] 08-24-2022 15:06-0500 Systolic blood pressure 132 mm[Hg] Socorro Fuller MD Work Phone: [facility] 08-17-2022 09:37-0500 Body weight 114.76 kg Socorro Fuller MD Work Phone: [facility] 08-17-2022 09:37-0500 Diastolic blood pressure 84 mm[Hg] Socorro Fuller MD Work Phone: [facility] 08-17-2022 09:37-0500 Systolic blood pressure 140 mm[Hg] Socorro Fuller MD Work Phone: [facility] 08-07-2022 10:30-0500 Body temperature 98.49 [degF] Suni Lanier MD Work Phone: [facility] 08-07-2022 10:30-0500 Body weight 114.35 kg Suni Lanier MD Work Phone: [facility] 08-07-2022 10:30-0500 Diastolic blood pressure 82 mm[Hg] Suni Lanier MD Work Phone: [facility] 08-07-2022 10:30-0500 Systolic blood pressure 120 mm[Hg] Suni Lanier MD Work Phone: [facility] 07-16-2022 16:14-0500 Body weight 115.21 kg Socorro Fuller MD Work Phone: [facility] 07-16-2022 16:14-0500 Diastolic blood pressure 80 mm[Hg] Socorro Fuller MD Work Phone: [facility] 07-16-2022 16:14-0500 Systolic blood pressure 122 mm[Hg] Socorro Fuller MD Work Phone: [facility] 05-22-2022 08:43-0400 Body weight 112.49 kg Socorro Fuller MD Work Phone: [facility] 05-22-2022 08:43-0400 Diastolic blood pressure 68 mm[Hg] Socorro Fuller MD Work Phone: [facility] 05-22-2022 08:43-0400 Systolic blood pressure 120 mm[Hg] Socorro Fuller MD Work Phone: [facility] Encounters Encounter Date Encounter Type Care Provider Facility Start: 08-28-2023 End: 08-29-2023 ambulatory MAME BAIG DO Facility:B Start: 08-28-2023 ambulatory MAME BAIG DO Facil ity:B Start: 08-20-2023 End: 08-21-2023 ambulatory MAME BAIG DO Facility:[facility] Start: 06-06-2023 ambulatory MAME BAIG DO Facil ity:B Start: 04-12-2023 End: 04-13-2023 ambulatory MAME BAIG DO Facility:B Start: 03-06-2023 End: 03-07-2023 ambulatory MAME BAIG DO Facility:B Start: 03-06-2023 End: 03-06-2023 Patient encounter procedure MAME BAIG DO [facility] Start: 01-14-2023 End: 01-15-2023 ambulatory MAME BAIG DO Facility:B Start: 01-04-2023 End: 01-09-2023 ambulatory MAME HARTMANNY DO Facility:B Start: 01-04-2023 End: 01-08-2023 Outreach Lab MAME BAIG DO [facility] Start: 12-29-2022 End: 12-30-2022 ambulatory MAME BAIG DO Facility:B Start: 12-29-2022 End: 12-29-2022 Patient encounter procedure MAME BAIG DO [facility] Start: 11-16-2022 End: 11-17-2022 ambulatory MAME BAIG DO Facility:B Start: 11-16-2022 End: 11-16-2022 Patient encounter procedure MAME BAIG DO [facility] Start: 11-14-2022 End: 11-19-2022 ambulatory MAME BAIG DO Facility:B Start: 11-14-2022 End: 11-18-2022 Outreach Lab MAME BAIG DO [facility] Start: 11-14-2022 End: 11-15-2022 ambulatory MAME HARTMANNY DO Facility:B Start: 11-14-2022 End: 11-14-2022 Patient encounter procedure MAME BAIG DO [facility] Start: 11-11-2022 End: 11-11-2022 Emergency department patient visit ARIANA GRAHAM MD Facility:B Start: 10-31-2022 End: 11-05-2022 ambulatory LAUREN DONAHUE APRN-SKOOG OPERATOR Facility:B Start: 10-31-2022 End: 11-04-2022 Outreach Lab LAUREN DONAHUE APRN-SKOOG OPERATOR [facility] Start: 09-18-2022 Telephone encounter Socorro Fuller MD Work Phone: OB/Gynecology Procedures Date Procedure Procedure Detail Performing Clinician Start: 08-24-2022 Cul bact xcpt urine blood/stool aerobic isol Socorro Fuller MD Work Phone: Start: 08-17-2022 Urnls dip stick/tabl et rgnt auto w/o microscopy Socorro Fuller MD Work Phone: Start: 08-10-2022 Urnls dip stick/tabl et rgnt auto w/o microscopy Socorro Fuller MD Work Phone: Start: 08-07-2022 Culture bacterial quanttative colony count urine Suni Lanier MD Work Phone: Start: 08-07-2022 Urnls dip stick/tabl et rgnt auto w/o microscopy Suni Lanier MD Work Phone: Start: 08-02-2022 Hysterectomy LAUREN HUANG WHEEL GRINDER-SKOOG OPERATOR Start: 07-06-2022 Mammography Mammograph y Coordinator Start: 12-29-2021 Carpal tunnel syndro me of left wrist (disorder) MAME BAIG DO Start: 12-07-2021 Carpal tunnel syndro me of right wrist (disorder) MAME BAIG DO Start: 06-26-2021 Mammography Socorrojanet Fuller MD Work Phone: Start: 08-05-2008 Cholecystectomy MAME BAIG DO Start: 08-05-2000 Appendectomy MAME BHAT DO Cardiac ablation usi ng fluoroscopy guidance MAME BAIG DO section MAME GREER DO Plan of Treatment Date Care Activity Detail Author Start: 05-22-2027 HPV TESTING HPV TESTING [facility] Start: 05-22-2027 PAP TESTING PAP TESTING [facility] Start: 07-06-2023 Mammography MAMMOGRAM [facility] Start: 08-24-2022 End: 10-24-2022 Microscopic observation [Identifier] in Vaginal fluid by Gram stain [facility] Work Phone: Immunizations Immunization Date Immunization Notes Care Provider Michael chambers 05-05-2022 influenza virus vaccine, unspecified formulation LAUREN DONAHUE WHEEL GRINDER-SKOOG OPERATOR [facility] 09-23-2020 SARS-CoV-2 (COVID-19 ) mRNA-1273 vaccine [facility]-SKOOG OPERATOR [facility] 08-23-2020 SARS-CoV-2 (COVID-19 ) mRNA-1273 vaccine [facility]-SKOOG OPERATOR [facility] 05-05-2016 influenza virus vaccine, unspecified formulation [facility]-SKOOG OPERATOR [facility] 08-05-2014 tetanus toxoid, redu dannie diphtheria toxoid, and acellular pertussis vaccine, adsorbed MAME BAIG DO [facility] Payers Date Payer Category Payer Unknown [employer] P[employer] [id number] 2020-Present [phone] [address] [place] [address] PPO [id number] 2020 Unknown [id number] 2014 Unknown [id number] 1978 Unknown [id number] 2.16.840.1.843392.3.579.2. 1978 Unknown [id number] 2.16.840.1.961575.3.579.2. 1978 Unknown [id number] 2.16.840.1.269835.3.579.2. 1978 Unknown [id number] 2.16.840.1.900438.3.579.2. 1978 Unknown [id number] 2.16.840.1.654115.3.579.2. 1978 Unknown [id number] 2.16.840.1.286039.3.579.2. 1978 Unknown [id number] 2.16.840.1.668325.3.579.2. 1978 Unknown [id number] 2.16.840.1.018871.3.579.2. 1978 Unknown [id number] 2.16.840.1.909708.3.579.2. 1978 Unknown [id number] 2.16.840.1.685655.3.579.2. 1978 Unknown [id number] 2.16.840.1.017368.3.579.2. 1978 Unknown [id number] 2.16.840.1.591295.3.579.2. 1978 Unknown [id number] 2.16.840.1.836989.3.579.2. 1978 Unknown [id number] 2.16.840.1.437332.3.579.2.627 1978 Unknown [id number] [id number] 1978 Unknown [id number] [id number] Social History Date Type Detail Facility Start: 02-14-2011 End: 02-13-2019 Never smoked tobacco (finding) [facility] Notes 05-18-2021 to 01-16-2023 Telephone Encounter - Dalila Fournier [facility] - 09/18/2022 2:34 PM ESTTelephone Encounter - Dalila Stahlsonya [facility] - 09/18/2022 2:29 PM ESTDeidre Sarina Fuller MD - 08/29/2022 8:50 AM ESTLaboratory Note Date & Type Note Facility 01-16-2023 Note . MICRO - Microbiology PROCEDURE: Urine Culture [*1] SOURCE: Urine BODY SITE: COLLECTED DATE/TIME: 01/14/2023 16:59 EDT RECEIVED DATE/TIME: 01/14/2023 20:30 EDT START DATE/TIME: 01/14/2023 20:31 EDT FREE TEXT SOURCE: FINAL REPORTS Final Report [] Verified Date/Time/Personnel: 01/16/2023 08:01 EDT 50,000 - 100,000 cfu/ml Mixed growth consistent with normal urogenital almas. PRELIMINARY REPORTS Preliminary Report [] Verified Date/Time/Personnel: 01/15/2023 08:49 EDT Culture results pending. Performing Locations *1: This test was performed at: [facility], [address] [place] [address], [facility] ([place] 11-16-2022 Note . MICRO - Microbiology PROCEDURE: Urine Culture [*1] SOURCE: Urine, Clean Catch BODY SITE: COLLECTED DATE/TIME: 11/14/2022 13:50 EDT RECEIVED DATE/TIME: 11/14/2022 20:24 EDT START DATE/TIME: 11/14/2022 20:24 EDT FREE TEXT SOURCE: FINAL REPORTS Final Report [] Verified Date/Time/Personnel: 11/16/2022 14:41 EDT 10,000 - 50,000 cfu/ml Mixed growth consistent with normal urogenital almas. including 8,000 cfu/ml Group B Beta Hemolytic Strep (Strep agalactiae) Sensitivity testing is not recommended for one of the following reasons: 1. Established susceptibility patterns are available or 2. Interpretative criteria are not available. PRELIMINARY REPORTS Preliminary Report [] Verified Date/Time/Personnel: 11/15/2022 08:28 EDT Culture results pending. Performing Locations *1: This test was performed at: [facility], [address] [place] [address], [facility] 11-16-2022 Note ORIGINAL EXAMINATION: CTA OF THE CHEST 11/16/2022 3:24 pm TECHNIQUE: CTA of the chest was performed after the administration of intravenous contrast. Multiplanar reformatted images are provided for review. MIP images are provided for review. Automated exposure control, iterative reconstruction, and/or weight based adjustment of the mA/kV was utilized to reduce the radiation dose to as low as reasonably achievable. COMPARISON: Chest x-ray November 11, 2022 HISTORY: ORDERING SYSTEM PROVIDED HISTORY: Reason for Exam: Shortness of breath on exertion, cough, dizziness, fatigue, recent COVID infection FINDINGS: Minor degenerative changes are noted in the spine. No other osseous abnormality. Small calcified granuloma right lower lobe. The lungs are clear and there is no consolidation, significant nodule, or pleural fluid seen. No mediastinal adenopathy is evident. No pulmonary artery defect is evident to suggest thromboembolism. No additional contributory abnormality seen. IMPRESSION: No evidence of pulmonary embolism or acute pulmonary abnormality. Interpreted by: Clifford Rice MD Preliminary Report By: Clifford Rice MD Electronically signed By Clifford Rice MD Dictated Date: 11/16/2022 3:41:35 PM Prelim Date: 11/16/2022 3:49:25 PM Sign Date: 11/16/2022 3:49:25 PM Ordering Provider: MAME BAIG [facility] 11-16-2022 Note ORIGINAL EXAMINATION: CTA OF THE CHEST 11/16/2022 3:24 pm TECHNIQUE: CTA of the chest was performed after the administration of intravenous contrast. Multiplanar reformatted images are provided for review. MIP images are provided for review. Automated exposure control, iterative reconstruction, and/or weight based adjustment of the mA/kV was utilized to reduce the radiation dose to as low as reasonably achievable. COMPARISON: Chest x-ray November 11, 2022 HISTORY: ORDERING SYSTEM PROVIDED HISTORY: Reason for Exam: Shortness of breath on exertion, cough, dizziness, fatigue, recent COVID infection FINDINGS: Minor degenerative changes are noted in the spine. No other osseous abnormality. Small calcified granuloma right lower lobe. The lungs are clear and there is no consolidation, significant nodule, or pleural fluid seen. No mediastinal adenopathy is evident. No pulmonary artery defect is evident to suggest thromboembolism. No additional contributory abnormality seen. IMPRESSION: No evidence of pulmonary embolism or acute pulmonary abnormality. Interpreted by: Clifford Rice MD Preliminary Report By: Clifford Rice MD Electronically signed By Clifford Rice MD Dictated Date: 11/16/2022 3:41:35 PM Prelim Date: 11/16/2022 3:49:25 PM Sign Date: 11/16/2022 3:49:25 PM Ordering Provider: MAME CALEROLAY [facility] 11-02-2022 Note . MICRO - Microbiology PROCEDURE: Urine Culture [*1] SOURCE: Urine, Clean Catch BODY SITE: COLLECTED DATE/TIME: 10/31/2022 07:25 EDT RECEIVED DATE/TIME: 10/31/2022 22:30 EDT START DATE/TIME: 10/31/2022 22:30 EDT FREE TEXT SOURCE: FINAL REPORTS Final Report [] Verified Date/Time/Personnel: 11/02/2022 08:19 EDT 10,000 - 50,000 cfu/ml Escherichia coli PRELIMINARY REPORTS Preliminary Report [] Verified Date/Time/Personnel: 11/01/2022 12:56 EDT 10,000 - 50,000 cfu/ml Escherichia coli NATHALIA to follow SUSCEPTIBILITY RESULTS Escherichia coli Antibiotic NATHALIA Dilut NATHALIA Inter Ampicillin <=8 Susceptible Ampicillin/ <=4/2 Susceptible Sulbactam Aztreonam <=4 Susceptible Cefazolin <=2 Susceptible Ciprofloxacin <=0.25 Susceptible Ertapenem <=0.5 Susceptible Gentamicin <=2 Susceptible Imipenem <=1 Susceptible Levofloxacin <=0.5 Susceptible Meropenem <=1 Susceptible Minocycline <=4 Susceptible Nitrofurantoin <=32 Susceptible Trimethoprim/ <=0.5/9.5 Susceptible Sulfa Performing Locations *1: This test was performed at: [facility], [address] [place] [address], [id number] , [facility] 09-18-2022 Miscellaneous Notes Paperwork completed and faxed to employer. Scanned into EMR and filed in LOGGING EQUIPMENT OPERATOR suite. Dalila Fournier LPN Received further disability paperwork for pt. Form completed and placed on providers desk for signature. Dalila Fournier LPN documented in this encounter [facility] 09-17-2022 Note HNO ID: [id number] Author: Socorro Fuller MD Service: ? Author Type: Physician Type: Progress Notes Filed: 09/17/2022 4:51 PM Note Text: SUBJECTIVE: 42 year old female presents for 6 week post-op exam. Overall feeling better. She reports no further vaginal discharge, no bleeding. She states occasional twinges of sharp pain but significantly improved. She denies any difficulty with urinary or bowel habits. She does still have some pressure when urinating at times. She states she feels approximately 75% better than she did on her previous visit. Objective: Incision: Healed Abdomen: Soft and Non-tender Genitalia: Normal external genitalia, Urethral meatus normal, Bladder nontender, normal vagina and normal vaginal tone, cervix absent, uterus absent, normal adnexa without masses or tenderness, perineum WNL, and CUFF intact- no mass or fullness noted. Normal discharge. Impression: Post-Op Exam Plan: Return to office annual exam. Restrictions reviewed- 2 more weeks for intercourse. Work letter given to return. I have reviewed and updated past medical and surgical history, medications and allergies. Socorro Burgess MD [facility] 08-29-2022 Note HNO ID: [id number] Author: Socorro Fuller MD Service: ? Author Type: Physician Type: Progress Notes Filed: 08/29/2022 9:34 AM Note Text: SUBJECTIVE: 42 year old female presents for 4 week post-op exam. Patient reports since starting antibiotics is feeling much better. She rates her pain a 3 out of 10. She states that the pressure sensation is gone. She has having reoccurring antibiotics but is taking a probiotic. She states that the discharge has significantly improved. Overall feeling better. She denies any fevers. OBJECTIVE: Incision: Healed Abdomen: Soft and Non-tender VE: Cuff intact minimal discharge. On bimanual exam the cuff is intact she has minimal tenderness. There is mass noted at the cuff on palpation. PLAN: RTO for 6 week check Continue PO abx Continue Probiotic Increase fiber I have reviewed and updated past medical and surgical history, medications and allergies. Socorro Burgess MD [facility] 08-29-2022 History of Presen t illness Narrative SUBJECTIVE: 42 year old female presents for 4 week post-op exam. Patient reports since starting antibiotics is feeling much better. She rates her pain a 3 out of 10. She states that the pressure sensation is gone. She has having reoccurring antibiotics but is taking a probiotic. She states that the discharge has significantly improved. Overall feeling better. She denies any fevers. OBJECTIVE: Incision: Healed Abdomen: Soft and Non-tender VE: Cuff intact minimal discharge. On bimanual exam the cuff is intact she has minimal tenderness. There is mass noted at the cuff on palpation. PLAN: RTO for 6 week check Continue PO abx Continue Probiotic Increase fiber I have reviewed and updated past medical and surgical history, medications and allergies. Socorro Burgess MD documented in this encounter [facility] 08-27-2022 Miscellaneous Notes noted Patient states she is feeling better. She is still having a little bit of pelvic pressure at the end of urination, but nothing like she was having before. Lauren Lebron RN Please follow up with patient and see how she is feeling once starting ABX on Saturday. She is seeing me on 08/29/22. I am still awaiting final culture results. documented in this encounter [facility] 08-24-2022 Note HNO ID: [id number] Author: Socorro Fuller MD Service: ? Author Type: Physician Type: Progress Notes Filed: 08/24/2022 4:59 PM Note Text: SUBJECTIVE: 42 year old female presents for 3 week post-op exam. Patient reports still having some lower pelvic cramping and now having some red/brown vaginal discharge that she describes as being malodorous. She states no fevers but running low-grade. 99.5. Patient reports is having regular bowel movements. Is urinating without difficulty. Patient states she was feeling better last week now again as not feeling so great. OBJECTIVE: Incision: healed Vaginal exam: Cuff intact- there is small amount of serosanguinous drainage- no odor appreciated. Cultures collected. Sutures intact. Cuff palpated and intact- no mass noted but she is tender to touch cuff. PLAN: RTO next week if not feeling better otherwise 6 week check. Will follow up cultures. Cbc with diff today Case was reviewed with Dr. Miranda. We will get CBC with differential today. Will start on Bactrim and Flagyl for possible cuff cellulitis. Discussed possible imaging but at this time she is otherwise asymptomatic. I have reviewed and updated past medical and surgical history, medications and allergies. Socorro Burgess MD [facility] 08-24-2022 History of Presen t illness Narrative SUBJECTIVE: 42 year old female presents for 3 week post-op exam. Patient reports still having some lower pelvic cramping and now having some red/brown vaginal discharge that she describes as being malodorous. She states no fevers but running low-grade. 99.5. Patient reports is having regular bowel movements. Is urinating without difficulty. Patient states she was feeling better last week now again as not feeling so great. OBJECTIVE: Incision: healed Vaginal exam: Cuff intact- there is small amount of serosanguinous drainage- no odor appreciated. Cultures collected. Sutures intact. Cuff palpated and intact- no mass noted but she is tender to touch cuff. PLAN: RTO next week if not feeling better otherwise 6 week check. Will follow up cultures. Cbc with diff today Case was reviewed with Dr. Miranda. We will get CBC with differential today. Will start on Bactrim and Flagyl for possible cuff cellulitis. Discussed possible imaging but at this time she is otherwise asymptomatic. I have reviewed and updated past medical and surgical history, medications and allergies. Socorro Burgess MD documented in this encounter [facility] 08-24-2022 Miscellaneous Notes Short Term Disability form completed, faxed and scanned into EMR and filed in LOGGING EQUIPMENT OPERATOR suite. Dalila Fournier LPN documented in this encounter [facility] 08-24-2022 Miscellaneous Notes Pt notified and scheduled to be seen today at 3pm. Dalila Fournier LPN Have her come at 3pm today - I want to make sure there is not infection at her cuff. Patient calling with update. States she feels about the same as she did on 08/17/22. Still having intermittent pelvic pain (left side worse) that radiates into back. Gets worse right after urinating or a bowel movement that lasts for 1.5 - 2 hours before it gets better. Rating pain 5/10 now. Taking tylenol as needed. Doesn't feel it is helping much. Only change she has noticed is her discharge that she is having. It has doubled in the amount, pink with some red in color and a slight odor now. No fever that she is aware of. She said she's comfortable to continue to monitor at home unless DM wants to see her sooner. Next post op visit not scheduled until 09/17/22. Patient notified that DM back in office tomorrow. Please advise. Jinny Garcia RN documented in this encounter [facility] 08-17-2022 Note HNO ID: [id number] Author: Socorro Fuller MD Service: ? Author Type: Physician Type: Progress Notes Filed: 08/17/2022 10:36 AM Note Text: SUBJECTIVE: 42 year old female presents for 2 week post-op exam. Patient reports has significantly improved since her last visit but she still notices some bladder pain especially when it gets full and after she urinates. Patient states that the pain will last for approximately an hour after her bladder is full and then urinates. She states she notices a little bit of a pinkish discharge when wiping. She denies any fevers but states she has had low-grade temps. She states that her abdominal pain that she was experiencing last week has resolved. She states her back pain has improved. She states that she is not noticing any yoly blood in her urine and that she is able to empty her bladder completely. She states that she does have some pain with bowel movements but was told 21 years ago when she had her appendix removed that she had a floppy bowel and wonders if that was playing a role. Patient states that there is no blood in her stool she seems to be slightly constipated but gets better as the day goes on. Patient states she has been getting some dizzy spells she states that she had this prior to the surgery thinks it is vertigo but just wanted to make me aware. Patient offers no other concerns at this time. OBJECTIVE: Incision: Dry and intact, without redness Abdomen: Soft, Non-tender, No palpable masses, and non distended. PLAN: RTO for 6 week check Reassurance given Pyridium given-discussed with her why she could be having some bladder pain however at this time I will recheck a urine culture although I find that the blood is likely from the vagina. Antibiotics are not indicated at this time. Discussed that she had a lot of bladder dissection and that the cystoscopy was normal however there is always a small chance that there could be a unrecognized injury hence we will do another CBC with a BMP but at this time I do not feel any imaging is warranted. I have reviewed and updated past medical and surgical history, medications and allergies. Socorro Burgess MD [facility] 08-17-2022 Miscellaneous Notes Patient has not seen Dr. Fuller yet for her visit today. Jinny Garcia RN Patient was requesting a Pelvic US for April. Does she need one and if so can an order be placed for it? Thank you, Gabbie Dunaway documented in this encounter [facility] 08-17-2022 History of Presen t illness Narrative SUBJECTIVE: 42 year old female presents for 2 week post-op exam. Patient reports has significantly improved since her last visit but she still notices some bladder pain especially when it gets full and after she urinates. Patient states that the pain will last for approximately an hour after her bladder is full and then urinates. She states she notices a little bit of a pinkish discharge when wiping. She denies any fevers but states she has had low-grade temps. She states that her abdominal pain that she was experiencing last week has resolved. She states her back pain has improved. She states that she is not noticing any yloy blood in her urine and that she is able to empty her bladder completely. She states that she does have some pain with bowel movements but was told 21 years ago when she had her appendix removed that she had a floppy bowel and wonders if that was playing a role. Patient states that there is no blood in her stool she seems to be slightly constipated but gets better as the day goes on. Patient states she has been getting some dizzy spells she states that she had this prior to the surgery thinks it is vertigo but just wanted to make me aware. Patient offers no other concerns at this time. OBJECTIVE: Incision: Dry and intact, without redness Abdomen: Soft, Non-tender, No palpable masses, and non distended. PLAN: RTO for 6 week check Reassurance given Pyridium given-discussed with her why she could be having some bladder pain however at this time I will recheck a urine culture although I find that the blood is likely from the vagina. Antibiotics are not indicated at this time. Discussed that she had a lot of bladder dissection and that the cystoscopy was normal however there is always a small chance that there could be a unrecognized injury hence we will do another CBC with a BMP but at this time I do not feel any imaging is warranted. I have reviewed and updated past medical and surgical history, medications and allergies. Socorro Burgess MD documented in this encounter [facility] 08-13-2022 Miscellaneous Notes Great. Thank you. Urine culture was negative. Spoke with patient. Overall doing better since office visit on Saturday. It's still pretty painful when she has a gas or a BM. Back pain has lessened. Will still feel pressure when urinating, but less. Remains afebrile. Continues to take Tylenol for pain. Encouraged to call the office with prn concerns. Next office visit this Saturday. Gabbie De Santiago RN Please call and see how patient is feeling today. See previous office note. documented in this encounter [facility] 08-10-2022 Note HNO ID: [id number] Author: Socorro Fuller MD Service: ? Author Type: Physician Type: Progress Notes Filed: 08/10/2022 8:47 AM Note Text: SUBJECTIVE: 42 year old female presents for 1 week post-op exam. Patient reports is having some left lower back pain that radiates around to her front. She states that the back pain seems to be more musculoskeletal in nature. She states she is also having pain in the epigastric area and its worse after she eats. She seems to have some pressure in the lower abdomen. She states that she had only 1 episode of pain with urination but otherwise is urinating without complication. She states that there is no blood in her urine. She states she is having regular bowel movements there is no blood in her stool. She states that she had 1 temperature of 100.2 but otherwise is doing well. She denies any vomiting states that she had a little bit of nausea but is since resolved. Patient denies any vaginal bleeding she states she had a little bit of clear discharge but that has also resolved. She denies any foul vaginal odors or other discharge that is concerning. Patient states she was having more significant reflux last night. She takes omeprazole daily. OBJECTIVE: Incision: Dry and intact, without redness. Minimal ecchymosis Abdomen: Soft, No palpable masses, and has some tenderness in the epigastric area. Her abdomen is nondistended. Vaginal exam: Speculum exam revealed vaginal cuff sutures to be intact. No abnormal discharge and no bleeding noted. On gentle bimanual exam the cuff is intact. I do not feel any masses at the cuff. She is appropriately tender on exam. Back: Pain is reproduced on deep palpation in the left back. Seems more consistent with musculoskeletal pain. PLAN: Return to the office in 1 week as scheduled please call the office with any worsening symptoms. She will follow-up with her family doctor for possible ulcer. Discussed stopping the NSAIDs and taking Tylenol. Discussed taking omeprazole twice daily if needed. Reviewed that her CBC and her BMP are within normal limits. Her white count is only slightly elevated which I can expect after surgery. I will send another urine culture just to ensure that there is no infection however her pain seems more musculoskeletal on her left side. It is reproduced on touching it. We discussed the possibility of a possible kidney stone. Encouraged her to push her fluids. Discussed possible ER visit with imaging if her pain does not improve. I have reviewed and updated past medical and surgical history, medications and allergies. Socorro Burgess MD [facility] 08-10-2022 History of Presen t illness Narrative SUBJECTIVE: 42 year old female presents for 1 week post-op exam. Patient reports is having some left lower back pain that radiates around to her front. She states that the back pain seems to be more musculoskeletal in nature. She states she is also having pain in the epigastric area and its worse after she eats. She seems to have some pressure in the lower abdomen. She states that she had only 1 episode of pain with urination but otherwise is urinating without complication. She states that there is no blood in her urine. She states she is having regular bowel movements there is no blood in her stool. She states that she had 1 temperature of 100.2 but otherwise is doing well. She denies any vomiting states that she had a little bit of nausea but is since resolved. Patient denies any vaginal bleeding she states she had a little bit of clear discharge but that has also resolved. She denies any foul vaginal odors or other discharge that is concerning. Patient states she was having more significant reflux last night. She takes omeprazole daily. OBJECTIVE: Incision: Dry and intact, without redness. Minimal ecchymosis Abdomen: Soft, No palpable masses, and has some tenderness in the epigastric area. Her abdomen is nondistended. Vaginal exam: Speculum exam revealed vaginal cuff sutures to be intact. No abnormal discharge and no bleeding noted. On gentle bimanual exam the cuff is intact. I do not feel any masses at the cuff. She is appropriately tender on exam. Back: Pain is reproduced on deep palpation in the left back. Seems more consistent with musculoskeletal pain. PLAN: Return to the office in 1 week as scheduled please call the office with any worsening symptoms. She will follow-up with her family doctor for possible ulcer. Discussed stopping the NSAIDs and taking Tylenol. Discussed taking omeprazole twice daily if needed. Reviewed that her CBC and her BMP are within normal limits. Her white count is only slightly elevated which I can expect after surgery. I will send another urine culture just to ensure that there is no infection however her pain seems more musculoskeletal on her left side. It is reproduced on touching it. We discussed the possibility of a possible kidney stone. Encouraged her to push her fluids. Discussed possible ER visit with imaging if her pain does not improve. I have reviewed and updated past medical and surgical history, medications and allergies. Socorro Burgess MD documented in this encounter [facility] 08-09-2022 Miscellaneous Notes Patient called and appointment scheduled. Spoke with lab client services and BMP was received at [facility] lab late last night, in process, should be back today. Lauren Lebron RN I would like to see see the patient tomorrow at 8:20 am. My first appt tmrw sent a message and wants to cancel anyway so please put her in that spot. Please check with Lab- her BMP is still pending. Patient calling with post op update. Last night temp got to 100.2,but never higher. She has been taking tylenol/ibuprofen routinely though. Also, she started with right lower back pain now along with the pelvic pain/pressure. Rating 6/10 on pain scale now. She last took med at 3a. She did have blood work done yesterday. Please advise. Jinny Garcia RN documented in this encounter [facility] 08-08-2022 Miscellaneous Notes Noted. Yes, try gas pills. Called patient. Remains afebrile. Passing flatulence. Notices it being worse after eating. Will try OTC gas pills. BMs resumed on Saturday. Having a BM daily since then. Gabbie De Santiago RN Post op pain is normal and having pressure can be normal too as she is no even one week out from surgery. Is she passing flatus and having BMs? Any fevers? She can take OTC gas pills to see if that helps dissipate some of her gas as well as that can cause pain after surgery. If any worsening symptoms notify the office. Called patient. No change from yesterday regarding the pressure pain she feels when she stands up or shortly after she urinates. She then has throbbing pain in her abdomen. Her urine stream is stronger today and she can empty her bladder. Will have her daughter bring her to have her blood work. Aware urine culture is still pending. Gabbie De Santiago RN Please call and see how patient is feeling today. Is she voiding better? I would like her to get labs done- CBC and BMP. documented in this encounter [facility] 08-07-2022 Note HNO ID: [id number] Author: Suni Lanier MD Service: ? Author Type: Physician Type: Progress Notes Filed: 08/07/2022 10:57 AM Note Text: DATE OF SERVICE: 08/07/2022 PROBLEM: Joslyn Ornelas presents for postop visit. SURGERY AND DATE: Total Laparoscopic Hysterectomy; Cystoscopy; Bilateral Salpingectomy at [facility] on 08/02/22 SUBJECTIVE/INTERVAL HISTORY: Joslyn Ornelas presents with bladder pressure AND abdominal discomfort. The percocet just makes her sleep and OTC meds don't help. She is able to empty her bladder but feels pressure when does so. No fever or chills. No incisional redness, swelling, or drainage. OBJECTIVE: ABDOMEN: Abdomen soft, non-tender, no hepatosplenomegaly. INCISIONS: c/d/i ASSESSMENT: 5 days post-op PLAN: Check UA AND urine culture Reassured patient that some abdominal discomfort is normal. Rx ultram sent. Suni Lanier MD [facility] 08-07-2022 History of Presen t illness Narrative DATE OF SERVICE: 08/07/2022 PROBLEM: Joslyn Ornelas presents for postop visit. SURGERY & DATE: Total Laparoscopic Hysterectomy; Cystoscopy; Bilateral Salpingectomy at [facility] on 08/02/22 SUBJECTIVE/INTERVAL HISTORY: Joslyn Ornelas presents with bladder pressure & abdominal discomfort. The percocet just makes her sleep and OTC meds don't help. She is able to empty her bladder but feels pressure when does so. No fever or chills. No incisional redness, swelling, or drainage. OBJECTIVE: ABDOMEN: Abdomen soft, non-tender, no hepatosplenomegaly. INCISIONS: c/d/i ASSESSMENT: 5 days post-op PLAN: Check UA & urine culture Reassured patient that some abdominal discomfort is normal. Rx ultram sent. Suni Lanier MD documented in this encounter [facility] 08-03-2022 Miscellaneous Notes Patient notified and voiced understanding of below information and instructions. Patient denies wanting to come into the office at this time for straight cath. Patient states she will also try the Ibuprofen and Tylenol at this time. Patient will call back in if symptoms worsen. Lauren Lebron RN I would have her get up and walk around more- make sure she is drinking plenty of water. The only other option is for her to come here and we can do a straight cath to see how much we get out. Sometimes bladder is sluggish after hysterectomy and we had do do a lot of dissection due to adhesions from previous . Sounds like she was urinating fine yesterday before she left the hospital. I would see how she does with just ibuprofen 600mg every 6hrs and tyelnol 1000mg every 6hrs. Have her take at different times so she always has something. If she needs something I can order a stronger NSAID for her but then she can't take the tylenol. Patient had a hysterectomy yesterday and called stating that when she urinates only trickles of urine come out and feels like bladder is not emptying completely. Denies fever and no pain during urination. Patient also stating that percocet makes her feel loopy and dizzy. Patient asking if another medication for pain can be prescribed? documented in this encounter [facility] 07-24-2022 Miscellaneous Notes [facility] paperwork completed and faxed to employer,scanned into EMR and filed in LOGGING EQUIPMENT OPERATOR suite. Dalila Fournier LPN [facility] paperwork completed,placed on providers desk for signature. Dalila Fournier LPN documented in this encounter [facility] 07-16-2022 History and physical note Pre-Op History and Physical HPI: The patient is a 42 year old female presenting for discussion regarding abnormal uterine bleeding, pelvic pain and dysmenorrhea. Patient has been taking Aygestin with minimal improvement over the last few months. Patient would like to proceed with surgical management at this time. Pre-operative visit. She is scheduled for TLH, Bilateral salpingectomy, Cysto, for AUB, pelvic pain, dysmenorrhea on 08/02/22. Procedure discussed along with risks, benefits and complications. Other alternatives discussed for management. Consent form signed? Yes. PAST MEDICAL HISTORY Diagnosis Date Abdominal pain, right upper quadrant Biliary dyskinesia 03/09/2010 Nausea alone PVC (premature ventricular contraction) TIA (transient ischemic attack) PAST SURGICAL HISTORY Procedure Laterality Date APPENDECTOMY DELIVERY ONLY X 2 , low transverse COLONOSCOPY 2009 EGD TRANSORAL BIOPSY SINGLE/MULTIPLE 02/27/2010 EGD TRANSORAL BIOPSY SINGLE/MULTIPLE 03/22/10 ENDOMETRIAL BX W/WO ENDOCERVIX BX W/O DILAT SPX 02/2011 DUB LAPS SURG CHOLECYSTECTOMY W/CHOLANGIOGRAPHY 03/09/2010 NOVASURE 03/2011 Current Outpatient Medications Medication Sig Dispense Refill oxyCODONE-acetaminophen (PERCOCET) 5-325 mg tablet Take 1 tablet by mouth every 6 hours as needed for pain. FOR PAIN. 15 tablet 0 dicyclomine (BENTYL) 20 mg tablet ergocalciferol 50,000 unit capsule (VITAMIN D2, DRISDOL) hydroCHLOROthiazide (HYDRODIURIL, ESIDRIX) 25 mg tablet 25 mg. lisinopril (ZESTRIL, PRINIVIL) 10 mg tablet 10 mg. lysine 1,000 mg tab norethindrone (AYGESTIN) 5 mg tablet take 1 tablet by mouth once daily 30 tablet 5 escitalopram oxalate (LEXAPRO) 10 mg tablet take 1 tablet by mouth once daily 30 tablet 2 levothyroxine (SYNTHROID) 25 mcg tablet Take 25 mcg by mouth once daily. cholecalciferol, vitamin D3, (VITAMIN D-3) 10 mcg (400 unit) cap Dose : 2,000 Int unit =, Oral, qWeek, 0 Refill(s) Omeprazole 20 mg TbEC APPLE CIDER VINEGAR ORAL Take by mouth. No current facility-administered medications for this visit. ALLERGIES: Penicillins PERSONAL HISTORY: Social History Tobacco Use Smoking status: Never Smokeless tobacco: Never Substance Use Topics Alcohol use: No Comment: rarely Drug use: No FAMILY HISTORY: FAMILY HISTORY Problem Relation Age of Onset Cancer Paternal Grandfather Cancer Paternal Aunt Cancer Maternal Uncle REVIEW OF SYMPTOMS: negative except as noted above PHYSICAL EXAMINATION: VITALS: Blood pressure 122/80, weight 254 lb (115.2 kg), last menstrual period 07/07/2022. GENERAL: The patient is well nourished, well hydrated in no acute distress. , The patient is oriented to time, place, and person. NECK: full range of Motion Full medical clearance obtained by PCP on 07/05/2022 IMPRESSION: Abnormal uterine bleeding, dysmenorrhea, pelvic pain s/p endometrial ablation PLAN: Total laparoscopic hysterectomy, bilateral salpingectomy and cystoscopy Pt has been counseled on risks/benefits and alternatives of surgery including but not limited to anesthesia, bleeding, infection, injury to pelvic structures including bowel, bladder, ureters and vessels. Pt wishes to proceed with surgery at this time. Possible need for blood transfusion reviewed the patient. We also reviewed the possibility of unrecognized injuries that could present in the future. This could include fistula formation as well as injuries to other structures- pt wishes to proceed. Consent signed. PRE and POST op instructions reviewed. POST OP MEDS GIVEN I have reviewed and updated past medical and surgical history, medications and allergies Socorro Fuller MD documented in this encounter [facility] 07-07-2022 Miscellaneous Notes July 07, 2022 PID: [id number] Joslyn Ornelas [address] [place] [address] Dear Ms. Ornelas, We are pleased to inform you that the results of your recent breast imaging exam on 07/06/2022 are normal. Your mammogram demonstrates that you have dense breast tissue, which could hide abnormalities. Dense breast tissue, in and of itself, is a relatively common condition. Therefore, this information is not provided to cause undue concern; rather, it is to ra ise your awareness and promote discussion with your health care provider regarding the presence of dense breast tissue in addition to other risk factors. Early detection of cancer is very important. We also understand recommendations regarding breast cancer screening are controversial. Please discuss with your primary care provider which strategy is best for you and whether a mammogram is right for you. Your imaging studies and report will be kept on file at [facility] as part of your permanent medical record and are available for your continuing care. Thank you for allowing us to help in meeting your health care needs. Sincerely, Dr. Medrano Interpreting Radiologist (Normal over 40) documented in this encounter [facility] 07-06-2022 Note HNO ID: [id number] Author: RT Roby(R) Service: ? Author Type: Technologist Type: Progress Notes Filed: 07/06/2022 7:12 AM Note Text: Radiology Service Progress Note PATIENT NAME: Joslyn Ornelas DATE OF SERVICE: July 06, 2022 TIME: 7:12 AM PATIENT IDENTITY VERIFICATION COMPLETED USING TWO (2) IDENTIFIERS: Name and Date of confirmed by patient verbally. FALL SCREENING: Has the patient had 2 falls in the last year or 1 fall with injury or currently using an Ambulatory Assistive Device (Walker, Cane, Wheelchair, Crutches, etc.)? No PATIENT GENDER DATA: Female. status: : No status: NO. PATIENT RELEVANT IMPLANT DATA REVIEWED: Not Applicable RADIOLOGY DEPARTMENT: Mammography PERIPHERAL IV DATA: Not applicable SIGNED BY: RT Roby(R) July 06, 2022 7:12 AM [facility] 05-22-2022 Note HNO ID: [id number] Author: Socorro Fuller MD Service: ? Author Type: Physician Type: Progress Notes Filed: 05/22/2022 9:30 AM Note Text: Joslyn Ornelas is a 42 year old female who presents for concerns regarding abnormal bleeding and pelvic pain as well as dysmenorrhea. Patient had a endometrial ablation done in 2010. Over the last few years she has started having persistent pelvic pain worse with bleeding. She was placed on control pills which stopped working well and then Aygestin 5 mg daily. Patient states for a period of a few months the Aygestin was working well but now her pelvic pain, dysmenorrhea and abnormal bleeding have resumed. Patient at this time would like to proceed with surgical intervention. Patient offers no other concerns at this time. OB History T1 L2 SAB1 IAB0 Ectopic0 Multiple0 Live Births0 Vascular Surgeon History LMP: 06/28/2021, Ablation Age at Menarche: Age at First : Age at Menopause: Vascular Surgeon History Comments: Sexual Activity: Yes; Male Contraception: Condom PAST MEDICAL HISTORY Diagnosis Date Abdominal pain, right upper quadrant Biliary dyskinesia 03/09/2010 Nausea alone PVC (premature ventricular contraction) TIA (transient ischemic attack) PAST SURGICAL HISTORY Procedure Laterality Date APPENDECTOMY DELIVERY ONLY X 2 , low transverse COLONOSCOPY 2009 EGD TRANSORAL BIOPSY SINGLE/MULTIPLE 02/27/2010 EGD TRANSORAL BIOPSY SINGLE/MULTIPLE 03/22/10 ENDOMETRIAL BX W/WO ENDOCERVIX BX W/O DILAT SPX 02/2011 DUB LAPS SURG CHOLECYSTECTOMY W/CHOLANGIOGRAPHY 03/09/2010 NOVASURE 03/2011 FAMILY HISTORY Problem Relation Age of Onset Cancer Paternal Grandfather Cancer Paternal Aunt Cancer Maternal Uncle Social History Tobacco Use Smoking status: Never Smokeless tobacco: Never Substance Use Topics Alcohol use: No Comment: rarely Drug use: No Current Outpatient Medications Medication Sig norethindrone (AYGESTIN) 5 mg tablet take 1 tablet by mouth once daily escitalopram oxalate (LEXAPRO) 10 mg tablet take 1 tablet by mouth once daily levothyroxine (SYNTHROID) 25 mcg tablet Take 25 mcg by mouth once daily. cholecalciferol, vitamin D3, (VITAMIN D-3) 10 mcg (400 unit) cap Dose : 2,000 Int unit =, Oral, qWeek, 0 Refill(s) Omeprazole 20 mg TbEC APPLE CIDER VINEGAR ORAL Take by mouth. No current facility-administered medications for this visit. Allergies As of Date: 05/22/2022 Allergen Noted Reaction PENICILLINS 02/15/2010 Rash Fully Assessed 06/28/2021 REVIEW OF SYSTEMS Abdomen: No bloating, early satiety, indigestion, or increased flatulence. No abdominal pain, nausea, vomiting, diarrhea, or constipation. Bladder: No dysuria, gross hematuria, urinary frequency, urinary urgency, some USI. Breast: No breast lumps, nipple d/c, overlying skin changes, redness or skin retraction. Expanded ROS: GENERAL: Negative for fever Allergies and current medication updated:Yes EXAM: BP 120/68 Wt 248 lb (112.5kg) LMP 05/08/2022 GENERAL: pleasant, female in no apparent distress HEENT: Normocephalic and atraumatic NECK: full range of motion DERMATOLOGY: Normal, without lesions, non-icteric, and non-hirsute ABDOMEN: soft, non-tender, and no masses PELVIC: external genitalia normal, normal Bartholin's glands, urethra, Disney's glands, no vulvar lesions, no cervical lesions, good vaginal support, physiologic discharge present, normal appearing perineal body and perianal region BIMANUAL: uterus normal size, shape and consistency, no adnexal masses, and Mild tenderness NEURO: alert and oriented x3,exam grossly non-focal EXTREMITIES: normal ASSESSMENT AND PLAN: Encounter Diagnosis ICD-10-CM 1. Pelvic pain in female R10.2 2. Dysmenorrhea N94.6 3. Abnormal uterine bleeding (AUB) N93.9 4. S/P endometrial ablation Z98.890 5. Screening for cervical cancer Z12.4 PAP FLUID CERVICAL SCREENING 6. Encounter for screening for human papillomavirus (HPV) Z11.51 PAP FLUID CERVICAL SCREENING 7. Encounter for screening mammogram for malignant neoplasm of breast Z12.31 EVA SCREENING W ELEAZAR 8. Reviewed options for continuing medical mgmt but at this point has now failed two hormonal options. Discussed surgical intervention- pt would like to proceed with hysterectomy at this time. TLH, b/l salpigectomy, Cysto OR booking sheet placed. Will need PRE OP clearance due to h/o TIA. Medical Decision Making: Problems: Moderate: Acute illness with systemic symptoms Data: Unique test(s) ordered: 2 Risk: High: Decision on elective major surgery w/ risk factors Medical Decision Making Level: 4 - Moderate Socorro Burgess MD [facility] 05-22-2022 History of Presen t illness Narrative Joslyn Ornelas is a 42 year old female who presents for concerns regarding abnormal bleeding and pelvic pain as well as dysmenorrhea. Patient had a endometrial ablation done in 2010. Over the last few years she has started having persistent pelvic pain worse with bleeding. She was placed on control pills which stopped working well and then Aygestin 5 mg daily. Patient states for a period of a few months the Aygestin was working well but now her pelvic pain, dysmenorrhea and abnormal bleeding have resumed. Patient at this time would like to proceed with surgical intervention. Patient offers no other concerns at this time. OB History T1 L2 SAB1 IAB0 Ectopic0 Multiple0 Live Births0 Vascular Surgeon History LMP: 06/28/2021, Ablation Age at Menarche: Age at First : Age at Menopause: Vascular Surgeon History Comments: Sexual Activity: Yes; Male Contraception: Condom PAST MEDICAL HISTORY Diagnosis Date Abdominal pain, right upper quadrant Biliary dyskinesia 03/09/2010 Nausea alone PVC (premature ventricular contraction) TIA (transient ischemic attack) PAST SURGICAL HISTORY Procedure Laterality Date APPENDECTOMY DELIVERY ONLY X 2 , low transverse COLONOSCOPY 2009 EGD TRANSORAL BIOPSY SINGLE/MULTIPLE 02/27/2010 EGD TRANSORAL BIOPSY SINGLE/MULTIPLE 03/22/10 ENDOMETRIAL BX W/WO ENDOCERVIX BX W/O DILAT SPX 02/2011 DUB LAPS SURG CHOLECYSTECTOMY W/CHOLANGIOGRAPHY 03/09/2010 NOVASURE 03/2011 FAMILY HISTORY Problem Relation Age of Onset Cancer Paternal Grandfather Cancer Paternal Aunt Cancer Maternal Uncle Social History Tobacco Use Smoking status: Never Smokeless tobacco: Never Substance Use Topics Alcohol use: No Comment: rarely Drug use: No Current Outpatient Medications Medication Sig norethindrone (AYGESTIN) 5 mg tablet take 1 tablet by mouth once daily escitalopram oxalate (LEXAPRO) 10 mg tablet take 1 tablet by mouth once daily levothyroxine (SYNTHROID) 25 mcg tablet Take 25 mcg by mouth once daily. cholecalciferol, vitamin D3, (VITAMIN D-3) 10 mcg (400 unit) cap Dose : 2,000 Int unit =, Oral, qWeek, 0 Refill(s) Omeprazole 20 mg TbEC APPLE CIDER VINEGAR ORAL Take by mouth. No current facility-administered medications for this visit. Allergies As of Date: 05/22/2022 Allergen Noted Reaction PENICILLINS 02/15/2010 Rash Fully Assessed 06/28/2021 REVIEW OF SYSTEMS Abdomen: No bloating, early satiety, indigestion, or increased flatulence. No abdominal pain, nausea, vomiting, diarrhea, or constipation. Bladder: No dysuria, gross hematuria, urinary frequency, urinary urgency, some USI. Breast: No breast lumps, nipple d/c, overlying skin changes, redness or skin retraction. Expanded ROS: GENERAL: Negative for fever Allergies and current medication updated:Yes EXAM: BP 120/68 Wt 248 lb (112.5kg) LMP 05/08/2022 GENERAL: pleasant, female in no apparent distress HEENT: Normocephalic and atraumatic NECK: full range of motion DERMATOLOGY: Normal, without lesions, non-icteric, and non-hirsute ABDOMEN: soft, non-tender, and no masses PELVIC: external genitalia normal, normal Bartholin's glands, urethra, Disney's glands, no vulvar lesions, no cervical lesions, good vaginal support, physiologic discharge present, normal appearing perineal body and perianal region BIMANUAL: uterus normal size, shape and consistency, no adnexal masses, and Mild tenderness NEURO: alert and oriented x3,exam grossly non-focal EXTREMITIES: normal ASSESSMENT AND PLAN: Encounter Diagnosis ICD-10-CM 1. Pelvic pain in female R10.2 2. Dysmenorrhea N94.6 3. Abnormal uterine bleeding (AUB) N93.9 4. S/P endometrial ablation Z98.890 5. Screening for cervical cancer Z12.4 PAP FLUID CERVICAL SCREENING 6. Encounter for screening for human papillomavirus (HPV) Z11.51 PAP FLUID CERVICAL SCREENING 7. Encounter for screening mammogram for malignant neoplasm of breast Z12.31 EVA SCREENING W ELEAZAR 8. Reviewed options for continuing medical mgmt but at this point has now failed two hormonal options. Discussed surgical intervention- pt would like to proceed with hysterectomy at this time. TLH, b/l salpigectomy, Cysto OR booking sheet placed. Will need PRE OP clearance due to h/o TIA. Medical Decision Making: Problems: Moderate: Acute illness with systemic symptoms Data: Unique test(s) ordered: 2 Risk: High: Decision on elective major surgery w/ risk factors Medical Decision Making Level: 4 - Moderate Socorro Burgess MD documented in this encounter [facility] 01-22-2022 Miscellaneous Notes filed DM patient. Due for annual 06/2022. Pending Prescriptions Disp Refills NORETHINDRONE ACETATE 5 MG TABLET 30 tablet 5 Sig: take 1 tablet by mouth once daily KRISTOFER: Yes RX INSTRUCTIONS: Pharmacy initiated this request. No need to notify patient. Jinny Garcia RN documented in this encounter [facility] 07-24-2021 Evaluation + Plan note Future Scheduled TestsThyroid Stimulating Hormone 07/24/21XR Chest 2 Views (PA & Lateral) 06/08/21 [facility] 06-08-2021 Evaluation + Plan note Future Scheduled TestsThyroid Stimulating Hormone 07/24/21XR Chest 2 Views (PA & Lateral) 06/08/21 [facility] 05-18-2021 HCoV 229E RNA YANY+non-probe Ql (Nph) Not Detected *NA* (05/18/21 12:15 PM) AH Auto Viro/Sero SS Evaluation + Plan note Future Appointments Appointment Date:05/24/2021 08:30:00 AM Scheduled Provider:MAME BAIG DO Location:[facility] Appointment Type:PC OV [facility] Evaluation + Plan note Future Appointments Appointment Date:11/28/2021 03:00:00 PM Scheduled Provider:MAME BAIG DO Location:[facility] Appointment Type:PC OV Future Scheduled TestsThyroid Stimulating Hormone 07/24/21Complete Metabolic Panel 11/27/21XR Chest 2 Views (PA & Lateral) 06/08/21 [facility] Evaluation + Plan note Future Appointments Appointment Date:04/10/2022 08:30:00 AM Scheduled Provider:MAME BAIG DO Location[facility] Appointment Type:PC OV Future Scheduled TestsThyroid Stimulating Hormone 07/24/21Complete Metabolic Panel 11/27/21XR Chest 2 Views (PA & Lateral) 06/08/21 [facility] Evaluation + Plan note Future Appointments Appointment Date:07/05/2022 03:30:00 PM Scheduled Provider:MAME BAIG DO Location:[facility] Appointment Type:PC Wellness Annual Appointment Date:07/17/2022 08:30:00 AM Scheduled Provider:MAME BAIG DO Location:[facility] Appointment Type:PC OV Pre Op Future Scheduled TestsThyroid Stimulating Hormone 07/24/21XR Chest 2 Views (PA & Lateral) 06/08/21 [facility] Evaluation + Plan note Future Appointments Appointment Date:07/17/2022 08:30:00 AM Scheduled Provider:MAME BAIG DO Location:[facility] Appointment Type:PC Wellness Annual Appointment Date:09/07/2022 10:00:00 AM Scheduled Provider:MAME BAIG DO Location:[facility] Appointment Type:PC Wellness Female [facility] Evaluation + Plan note Future Appointments Appointment Date:01/04/2023 08:30:00 AM Scheduled Provider:MAME BAIG DO Location:[facility] Appointment Type:PC OV Future Scheduled TestsThyroid Stimulating Hormone 09/07/22Free T4 09/07/22Free T3 09/07/22Lipid Profile 07/17/22Hepatitis C Antibody IgG 07/17/22Vitamin D Level 09/07/22Complete Metabolic Panel 09/07/22Complete Metabolic Panel 07/17/22 [facility] Evaluation + Plan note Future Appointments Appointment Date:01/04/2023 08:30:00 AM Scheduled Provider:MAME BAIG DO Location:[facility] Appointment Type:PC OV Future Scheduled TestsComplete Metabolic Panel 07/17/22 [facility] Evaluation + Plan note Future Appointments Appointment Date:11/20/2022 08:30:00 AM Scheduled Provider:MAME BAIG DO Location:[facility] Appointment Type:PC OV Appointment Date:01/04/2023 08:30:00 AM Scheduled Provider:MAME BAIG DO Location:[facility] Appointment Type:PC OV Future Scheduled TestsComplete Metabolic Panel 07/17/22 [facility] Evaluation + Plan note Future Appointments Appointment Date:04/10/2023 04:30:00 PM Scheduled Provider:MAME BAIG DO Location:[facility] Appointment Type:PC Wellness Annual Future Scheduled TestsComplete Metabolic Panel 07/17/22 [facility] Evaluation + Plan note Future Appointments Appointment Date:04/10/2023 04:30:00 PM Scheduled Provider:MAME BAIG DO Location:[facility] Appointment Type: Wellness Annual [facility] Diagnosis Abnormal uterine bleeding (AUB)- Primary Dysmenorrhea Pelvic pain in female Unspecified symptom associated with female genital organs Post-op pain Other acute postoperative pain [facility] Diagnosis Pelvic pressure in female- Primary Other specified symptom associated with female genital organs Postoperative pain Other acute postoperative pain [facility] Diagnosis Post-op pain- Primary Other acute postoperative pain [facility] Diagnosis Post-operative state- Primary Other postprocedural status Acute left-sided low back pain without sciatica Asymptomatic microscopic hematuria [facility] Diagnosis Post-operative state- Primary Other postprocedural status Dysuria Dizziness Dizziness and giddiness [facility] Diagnosis Post-op pain- Primary Other acute postoperative pain Vaginal discharge Leukorrhea, not specified as infective Vaginal cuff cellulitis Vaginitis and vulvovaginitis, unspecified [facility] Diagnosis Vaginal cuff cellulitis- Primary Vaginitis and vulvovaginitis, unspecified Post-operative state Other postprocedural status [facility] Narrative No data available for this section [facility] Hospital Discharge instructions No data available for this section [facility] Progress note No data available for this section [facility] Reason for referral (narrative)* Diagnostic Procedure Only (Routine) - Pending Review Specialty Diagnoses / Procedures Referred By Contac t Referred To Contact [facility] Diagnoses Encounter for screening mammogram for malignant neoplasm of breast Procedures EVA SCREENING W ELEAZAR SCREENING DIGITAL BREAST TOMOSYNTHESIS BI SCREENING MAMMOGRAPHY BI 2-VIEW BREAST INC CAD Socorro Lennon MD [address] [place] [address] [facility] [address] [place] [address] Referral ID Status Reason Start Date Expiration Date Visits Requested Visits Authorized [id number] Pending Review Auto-Generat ed Referral 2 06/21/2023 1 1 [facility] Summary Purpose Family History No Family History Records Found No data available for this section No Family History Records Found Advance Directives No Advanced Directives Records FoundNo Advanced Directives Records Found Additional Source Comments Care Team (unrecognized sect ion and content) Personnel Name: MAME BAIG DO Address: [address] [place] [address] Care Team Personnel Name: MAME BAIG DO Position: P4 Physician - Primary Care Member Role: Primary Care Physician Address: Address: [address] [place] [address] Name: SOCORRO FULLER Member Role: OBGYN Name: MILES LENNON MD Member Role: OBGYMoshe Address: Address: [address] [place] [address]- Name: NORAH BENITO MD Position: P3 Physician - Orthopedics Member Role: Orthopaedist Address: Address: [address] [place] [address] [facility] [place] [address]- Care Team Related Persons Name: JOSE LUIS ORNELAS Name: STEPHEN CASTILLO Address: Home [address] [place], [place] [id number] Care Team Personnel Name: MAME BAIG DO Position: P4 Physician - Primary Care Member Role: Primary Care Physician Address: Address: [address] [place] [address] Name: SOCORRO FULLER Member Role: OBGYN Name: MILES LENNON MD Member Role: OBGYN Address: Address: [address] [place] [address]- Name: NORAH BENITO MD Position: P3 Physician - Orthopedics Member Role: Orthopaedist Address: Address: [address] [place] [address] [facility] [place] [id number]- Care Team Related Persons Name: JOSE LUIS ORNELAS Name: STEPHEN CASTILLO Address: Home [address], [place] [id number] Care Team Personnel Name: MAME BAIG DO Position: P4 Physician - Primary Care Member Role: Primary Care Physician Address: Address: [address] [place] [address] Name: SOCORRO FULLER Member Role: OBGYN Name: MILES LENNON MD Member Role: OBGYN Address: Address: [address] [place] [address]- Name: NORAH BENITO MD Position: P3 Physician - Orthopedics Member Role: Orthopaedist Address: Address: [address] [place] [address] [facility] [place] [address]- Care Team Related Persons Name: JOSE LUIS ORNELAS Name: BERNA CASTILLONDAN Address: Home [address], [place] [id number] Care Team Personnel Name: MAME BAIG DO Position: P4 Physician - Primary Care Member Role: Primary Care Physician Address: Address: [address] [place] [address]- Name: SOCORRO FULLER Member Role: OBGYN Name: MILES LENNON MD Member Role: OBGYN Address: Address: [address] [place] [address]- Name: ONRAH BENITO MD Position: P3 Physician - Orthopedics Member Role: Orthopaedist Address: Address: [address] [place] [address] [facility] [place] [id number]- Care Team Related Persons Name: JOSE LUIS ORNELAS Name: STEPHEN CASTILLO Address: Home [facility] [address] [place], [place] [id number] Care Team Personnel Name: MAME BAIG DO Position: P4 Physician - Primary Care Member Role: Primary Care Physician Address: Address: [address] [place] [address] Name: SOCORRO FULLER Member Role: OBGYN Name: MILES LENNON MD Member Role: OBGYN Address: Address: [address] [place] [address] Name: NORAH BENITO MD Position: P3 Physician - Orthopedics Member Role: Orthopaedist Address: Address: [address] [place] [address] [facility] [address] Care Team Related Persons Name: CECI JOSE LUIS Name: STEPHEN CASTILLO Address: Home [address] [place] [phone] Care Team Personnel Name: MAME BAIG DO Position: P4 Physician - Primary Care Member Role: Primary Care Physician Address: Address: [address] [place] [address] Name: SOCORRO FULLER Member Role: OBGYN Name: MILES LENNON MD Member Role: OBGYN Address: Address: [address] [place] [address] Name: NORAH BENITO MD Position: P3 Physician - Orthopedics Member Role: Orthopaedist Address: Address: [address] [place] [address] [facility] [address] Care Team Related Persons Name: JOSE LIUS ORNELAS Name: STEPHEN CASTILLO Address: Home [address] [place] [id number] Care Team Personnel Name: MAME BAIG DO Position: P4 Physician - Primary Care Member Role: Primary Care Physician Address: Address: [address] [place] [address] Name: SOCORRO FULLER Member Role: OBGYN Name: MILES LENNON MD Member Role: OBGYN Address: Address: [address] [place] [address]- Name: NORAH BENITO MD Position: P3 Physician - Orthopedics Member Role: Orthopaedist Address: Address: [address] [facility] [address] [place] [place] [address]- Care Team Related Persons Name: JOSE LUIS ORNELAS Name: STEPHEN CASTILLO Address: Home [address] [place], [place] [phone] Source Comments (unrecognize d section and content) In the event this informatio n is protected by the Federal Confidentiality of Alcohol and Drug Abuse Patient Records regulations: The Federal rules restrict any use of the information to criminally investigate or prosecute any alcohol or drug abuse patient.Premier HealthIn the event this information is protected by the Federal Confidentiality of Alcohol and Drug Abuse Patient Records regulations: The Federal rules restrict any use of the information to criminally investigate or prosecute any alcohol or drug abuse patient.Premier HealthIn the event this information is protected by the Federal Confidentiality of Alcohol and Drug Abuse Patient Records regulations: The Federal rules restrict any use of the information to criminally investigate or prosecute any alcohol or drug abuse patient.Premier HealthIn the event this information is protected by the Federal Confidentiality of Alcohol and Drug Abuse Patient Records regulations: The Federal rules restrict any use of the information to criminally investigate or prosecute any alcohol or drug abuse patient.Premier HealthIn the event this information is protected by the Federal Confidentiality of Alcohol and Drug Abuse Patient Records regulations: The Federal rules restrict any use of the information to criminally investigate or prosecute any alcohol or drug abuse patient.Premier HealthIn the event this information is protected by the Federal Confidentiality of Alcohol and Drug Abuse Patient Records regulations: The Federal rules restrict any use of the information to criminally investigate or prosecute any alcohol or drug abuse patient.Premier HealthIn the event this information is protected by the Federal Confidentiality of Alcohol and Drug Abuse Patient Records regulations: The Federal rules restrict any use of the information to criminally investigate or prosecute any alcohol or drug abuse patient.Premier HealthIn the event this information is protected by the Federal Confidentiality of Alcohol and Drug Abuse Patient Records regulations: The Federal rules restrict any use of the information to criminally investigate or prosecute any alcohol or drug abuse patient.Premier HealthIn the event this information is protected by the Federal Confidentiality of Alcohol and Drug Abuse Patient Records regulations: The Federal rules restrict any use of the information to criminally investigate or prosecute any alcohol or drug abuse patient.Premier HealthIn the event this information is protected by the Federal Confidentiality of Alcohol and Drug Abuse Patient Records regulations: The Federal rules restrict any use of the information to criminally investigate or prosecute any alcohol or drug abuse patient.Premier HealthIn the event this information is protected by the Federal Confidentiality of Alcohol and Drug Abuse Patient Records regulations: The Federal rules restrict any use of the information to criminally investigate or prosecute any alcohol or drug abuse patient.Premier HealthIn the event this information is protected by the Federal Confidentiality of Alcohol and Drug Abuse Patient Records regulations: The Federal rules restrict any use of the information to criminally investigate or prosecute any alcohol or drug abuse patient.Premier HealthIn the event this information is protected by the Federal Confidentiality of Alcohol and Drug Abuse Patient Records regulations: The Federal rules restrict any use of the information to criminally investigate or prosecute any alcohol or drug abuse patient.Premier HealthIn the event this information is protected by the Federal Confidentiality of Alcohol and Drug Abuse Patient Records regulations: The Federal rules restrict any use of the information to criminally investigate or prosecute any alcohol or drug abuse patient.Premier HealthIn the event this information is protected by the Federal Confidentiality of Alcohol and Drug Abuse Patient Records regulations: The Federal rules restrict any use of the information to criminally investigate or prosecute any alcohol or drug abuse patient.Premier HealthIn the event this information is protected by the Federal Confidentiality of Alcohol and Drug Abuse Patient Records regulations: The Federal rules restrict any use of the information to criminally investigate or prosecute any alcohol or drug abuse patient.Premier HealthIn the event this information is protected by the Federal Confidentiality of Alcohol and Drug Abuse Patient Records regulations: The Federal rules restrict any use of the information to criminally investigate or prosecute any alcohol or drug abuse patient.Premier HealthIn the event this information is protected by the Federal Confidentiality of Alcohol and Drug Abuse Patient Records regulations: The Federal rules restrict any use of the information to criminally investigate or prosecute any alcohol or drug abuse patient.Premier HealthIn the event this information is protected by the Federal Confidentiality of Alcohol and Drug Abuse Patient Records regulations: The Federal rules restrict any use of the information to criminally investigate or prosecute any alcohol or drug abuse patient.Premier HealthIn the event this information is protected by the Federal Confidentiality of Alcohol and Drug Abuse Patient Records regulations: The Federal rules restrict any use of the information to criminally investigate or prosecute any alcohol or drug abuse patient.[facility] Reason for Visit (unrecogniz ed section and content) Reason Comments Discussion Specialty Diagnoses / Procedures Referred By Virgilio t Referred To Contact BALANCE WHEEL SCREW HOLE TAPPER Diagnoses To discuss a Hysterectomy Procedures MYC SPECIALIST OFFICE VISIT Self Socorro Lennon MD [address] [place] [address] Referral ID Status Reason Start Date Expiration Date Visits Re quested Visits Authorized [id number] Closed 05/22/2022 08/04/2022 1 1 Reason Comments Pre-Op Exam Specialty Diagnoses / Procedures Referred By Contac t Referred To Contact [employer]ANCE [employer] S[employer]W [employer]LE TAPPER Diagnoses surgery 08/02 @[facility] Procedures OFFICE/OUTPATIENT ESTABLISHED MOD MDM 30-39 MIN PRE OP Self Socorro Lennon MD [address] [place] [address] Referral ID Status Reason Start Date Expiration Date Visits Re quested Visits Authorized [id number] Closed 07/16/2022 08/04/2022 1 1 Reason Comments Post Op Specialty Diagnoses / Procedures Referred By Virgilio t Referred To Contact BALANCE WHE[employer] SCREW HOLE TAPPER Diagnoses post op with bladder pain and abd. pain Procedures OFFICE/OUTPATIENT ESTABLISHED HIGH MDM 40-54 MIN POST OP Self Suni Lanier MD [address] [place] [address] Referral ID Status Reason Start Date Expiration Date Visits Re quested Visits Authorized [id number] Closed 08/07/2022 08/04/2023 1 1 Reason Onset Date Comments Post Op 08/08/2022 Reason Onset Date Comments Post Op Post-Op Visit 08/10/2022 Specialty Diagnoses / Procedures Referred By Virgilio t Referred To Contact [employer]ANCE [employer]LE TAPPER Diagnoses Post-op pain Post Op pain Procedures OFFICE/OUTPATIENT ESTABLISHED HIGH MDM 40-54 MIN POST OP Self Socorro Lennon MD [address] [place] [address] Referral ID Status Reason Start Date Expiration Date Visits Re quested Visits Authorized [id number] Closed 08/10/2022 08/04/2023 1 1 Reason Comments Patient Update Reason Comments Appointment Patient was requesti ng a Pelvic US for April. Does she need one and if so can an order be placed for it? Reason Onset Date Comments Post-Op Visit 08/17/2022 Specialty Diagnoses / Procedures Referred By Virgilio rowley Referred To Contact BALANCE [employer] SCREW HOLE TAPPER Diagnoses Post Op Procedures OFFICE/OUTPATIENT ESTABLISHED MOD MDM 30-39 MIN OFFICE/OUTPATIENT ESTABLISHED HIGH MDM 40-54 MIN POST OP Self Socorro Lennon MD [address] [place] [address] Referral ID Status Reason Start Date Expiration Date Visits Re quested Visits Authorized [id number] Closed 08/17/2022 11/15/2022 1 1 Reason Comments Post Op Update Reason Comments FMLA Paperwork Specialty Diagnoses / Procedures Referred By Virgilio rowley Referred To Contact [employer]ANCE [employer] SCREW HOLE TAPPER Diagnoses post op check Procedures OFFICE/OUTPATIENT ESTABLISHED HIGH MDM 40-54 MIN POST OP Self Socorro Lennon MD [address] [place] [address] Referral ID Status Reason Start Date Expiration Date Visits Re quested Visits Authorized [id number] Closed 08/24/2022 08/04/2023 1 1 Reason Comments Follow Up Reason Onset Date Comments Post-Op Visit 08/29/2022 Specialty Diagnoses / Procedures Referred By Contac t Referred To Contact BALANCE WHE[employer] SCREW HOLE TAPPER Diagnoses one week follow up Procedures OFFICE/OUTPATIENT ESTABLISHED HIGH MDM 40-54 MIN POST OP Self Socorro Lennon MD [address] [place], [place] [phone] Referral ID Status Reason Start Date Expiration Date Visits Re quested Visits Authorized [id number] Closed 08/29/2022 08/04/2023 1 1 Care Team (unrecognized sect ion and content) Care Team Personnel Name: MAME BAIG DO Position: P4 Physician - Primary Care Member Role: Primary Care Physician Address: Address: [address] [place] [address] Name: SOCORRO FULLER Member Role: OBGYN Name: MILES LENNON MD Member Role: OBGYN Address: Address: [address] [place] [address] Name: NORAH BENITO MD Position: P3 Physician - Orthopedics Member Role: Orthopaedist Address: Address: [address] [place] [address] [facility] [place] [id number] Care Team Related Persons Name: JOSE LUIS ORNELAS Name: STEPHEN CASTILLO Address: Home [address] [place], [place] [phone] Care Team Personnel Name: MAME BAIG DO Position: P4 Physician - Primary Care Member Role: Primary Care Physician Address: Address: [address] [place] [address] Name: SOCORRO FULLER Member Role: OBGYN Name: MILES LENNON MD Member Role: OBGYN Address: Address: [address] Name: NORAH BENITO MD Position: P3 Physician - Orthopedics Member Role: Orthopaedist Address: Address: [address] [place] [address] [address] [facility] [place] [address]- Care Team Related Persons Name: JOSE LUIS ORNELAS Name: STEPHEN CASTILLO Address: Home [address] [place], [place] [phone] INFORMATION SOURCE (unrecogn ized section and content) DATE CREATED AUTHOR AUTHOR'S ORGANIZ ATION 08/29/2023 Formerly [facility] ([place] FOR RECORDS PERTAINING TO PATIENTS WHO ARE OR HAVE BEEN ENROLLED IN A CHEMICAL DEPENDENCY/SUBSTANCEABUSE PROGRAM, SOME INFORMATION MAY BE OMITTED. This clinical summary was aggregated from multiple sources. Caution should be exercised in using it in the provision of clinical care. This summary normalizes information from multiple sources, and as a consequence, information in this document may materially change the coding, format and clinical context of patient data. In addition, data may be omitted in some cases. CLINICAL DECISIONS SHOULD BE BASED ON THE PRIMARY CLINICAL RECORDS. [facility] [employer] [facility]. provides no warranty or guarantee of the accuracy or completeness of information in this document.
--- NOTE | 2023-09-12 10:17 | WT_ITS ---
PSN 6 Minute Walk Test 6 Minute Walk Test 6 Minute Walk Test: 6 Minute Walk Test PSN:6-Minute Walk Test Start: 09/10/23 12:43 Freq: Status: Active Protocol: [id number] Document 09/10/23 12:43 [facility] (Rec: 09/10/23 12:46 [facility] [id number]) 6 Minute Walk Test Date Performed 09/10/23 Time Performed 12:30 Height 5 ft 4 in Weight: 248 lb Weight in Pounds 248.[address]: Grey Henry Assistive device used: None Pre-test Oxygen Delivery Method Room Air Pulse Ox 98 Pulse Rate (60-100) 101 H Dyspnea Jina Scale (0-10) 0 1st minute Oxygen Delivery Method Room Air Pulse Ox 95 Pulse Rate (60-100) 109 H Dyspnea Jina Scale (0-10) 0 Number of Rests Taken 0 2nd minute Oxygen Delivery Method Room Air Pulse Ox 95 Pulse Rate (60-100) 107 H Dyspnea Jina Scale (0-10) 1 Number of Rests Taken 0 3rd minute Oxygen Delivery Method Room Air Pulse Ox 96 Pulse Rate (60-100) 108 H Dyspnea Jina Scale (0-10) 2 Number of Rests Taken 1 Reported Symptoms Increased Work of Breathing, Dizziness 4th minute Oxygen Delivery Method Room Air Pulse Ox 95 Pulse Rate (60-100) 109 H Dyspnea Jina Scale (0-10) 2 Number of Rests Taken 0 Reported Symptoms Increased Work of Breathing 5th minute Oxygen Delivery Method Room Air Pulse Ox 94 Pulse Rate (60-100) 107 H Dyspnea Jina Scale (0-10) 3 Number of Rests Taken 0 Reported Symptoms Increased Work of Breathing 6th minute Oxygen Delivery Method Room Air Pulse Ox 94 Pulse Rate (60-100) 104 H Dyspnea Jina Scale (0-10) 3 Number of Rests Taken 0 Reported Symptoms Increased Work of Breathing Post-test Oxygen Delivery Method Room Air Pulse Ox 99 Pulse Rate (60-100) 100 Dyspnea Jina Scale (0-10) 0 Full Laps Walked 20 Partial Lap, Number of Tiles Walked 0 Total Distance Walked (ft) 1180 Interpretation Interpretation: The patient ambulated 1180 feet over the course of 6 minutes beginning on room air without assistive devices. Pretesting oxygen saturation was noted to be 98% on room air. With ambulation, the josh oxygen saturation was 94%. There was no significant exertional oxygen desaturation. Recommendations Recommendations: There is no indication for the use of supplemental oxygen at this time.
== END | disposition home or self-care (01) ==
PROVIDERS: PCP Family Medicine; Referring Provider Internal Medicine Critical Care Medicine; Visit Provider Internal Medicine Critical Care Medicine
DX: U09.9 Post COVID-19 condition, unspecified (principal); G47.33 Obstructive sleep apnea (adult) (pediatric)
CPT/HCPCS: 94618

== ENCOUNTER → 2024-03-17 | Outpatient (CLI) | payer OTHER, SELFPAY ==
[2024-03-17 09:40] LABS: Absolute Lymphocyte Count 2.05 X10^3/uL (0.83-4.51); Absolute Neutrophil Count 7.1 X10^3/uL (2.0-7.7); Basophil# 0.05 X10^3/uL; Basophil% 0.5 % (0-1); Eosinophil# 0.24 X10^3/uL; Eosinophils% 2.4 % (0-5); Hematocrit 42.6 % (37-47); Lymphocyte # 2.05 X10^3/ul (0.83-4.51); Lymphocyte % 20.2 % (19-41); Mean Corp Hgb Conc 32.9 g/dL (32-36); Mean Corpuscular Volume 88.2 fL (81-99); Mean Platelet Vol. 9.2 fl (6.2-12.0); Monocyte# 0.65 X10^3/uL; Monocyte% 6.4 % (0-10); NRBC Flagged by Analyzer 0 % (0-5); Neutrophil # 7.14 X10^3/uL (2.7-7.7); Neutrophil % 70.1 % (47-70); Platelet Count 286 K/mm3 (150-450); RBC Distribution Width CV 13.3 % (11.6-14.6); RBC Distribution Width SD 42.8 fl (35.1-43.9); Red Blood Count 4.83 M/mm3 (4.2-5.4); White Blood Count 10.2 K/mm3 (4.4-11.0)
[2024-03-17 11:57] LABS: ALB/GLOB Ratio 0.8 RATIO (0.9-2.4); AST(SGOT) 20 U/L (15-37); Alanine Aminotransfer ALT/SGPT 38 U/L (13-56); Albumin, Serum 3.2 g/dL (3.2-5.0); Alkaline Phosphatase 79 U/L (45-117); Anion Gap 8 (5-15); BUN 9 mg/dL (7-18); BUN/Creat Ratio 14.3 RATIO (10-20); Calcium,Total 8.6 mg/dL (8.5-10.1); Chloride 107 mmol/L (98-107); Cholesterol 168 mg/dL (200); Creatinine, Serum 0.63 mg/dL (0.55-1.02); EST Glomerular Filtration Rate 108 mL/min (>60); Est Glom Filt Rate - Afr Amer 131 mL/min (>60); Estradiol 93.1 pg/mL; Follicle Stimulating Hormone 5.1 mIU/mL; Globulin 3.9 g/dL (2.2-4.2); Glucose 99 mg/dL (74-106); High Density Lipoprotein 51 mg/dL; Luteinizing Hormone 6.5 mIU/mL; Potassium 3.6 mmol/L (3.5-5.1); Protein, Total 7.1 g/dL (6.4-8.2); Sodium Level 140 mmol/L (136-145); T4 Free Direct 0.96 ng/dL (0.76-1.46); Triglycerides 148 mg/dL; Very Low Density Lipoprotein 30 mg/dL (5-40)
[2024-03-17 13:53] LABS: Hemoglobin A1c 5.2 % (3.8-5.6)
== END | disposition home or self-care (01) ==
LOC: MTLAB 07:16
PROVIDERS: PCP Nurse Practitioner Family; Referring Provider Nurse Practitioner Family; Visit Provider Nurse Practitioner Family
DX: Z00.01 Encounter for general adult medical examination with abnormal findings (principal); R73.01 Impaired fasting glucose; N95.1 Menopausal and female climacteric states
CPT/HCPCS: 36415; 80053; 80061; 82670; 83001; 83002; 83036; 84144; 84439; 84443; 85025

== ENCOUNTER → 2024-09-14 | Outpatient (CLI) | payer OTHER, SELFPAY ==
[2024-09-14 12:58] LABS: T4 Free Direct 1.05 ng/dL (0.76-1.46)
== END | disposition home or self-care (01) ==
LOC: BFHLAB 08:55
PROVIDERS: PCP Nurse Practitioner Family; Referring Provider Nurse Practitioner Family; Visit Provider Nurse Practitioner Family
DX: E03.9 Hypothyroidism, unspecified (principal)
CPT/HCPCS: 36415; 84439; 84443

== ENCOUNTER 2025-06-03 11:45 | Emergency (ER) | payer OTHER, SELFPAY ==
[2025-06-03] VITALS (7 sets, daily range): BP systolic 120–165; BP diastolic 69–93; PULSE 63–115; RESP 10–33; TEMP 36.6–37.3; O2SAT 100; BMI 37.5
--- NOTE | 2025-06-03 11:58 | EKG12_ITS ---
Test Reason : CP
--- NOTE | 2025-06-03 12:21 | ED.VIS.CHEST ---
HPI History of Present Illness Chief Complaint: Chest Pain Narrative Narrative: Patient is a 45-year-old female with past medical history of alcohol use, TIA, IBS, hypertension, OBDULIA, anxiety who presents to the emergency department with a chief complaint of chest discomfort and right shoulder blade pain. States that she has had chest pain off and on for the last 2 days now and notes that her shoulder blade pain has been constant. States that nothing makes this better or worse. States that she was sitting down at work when she became very sweaty with this pain prompting her to come here to the emergency department to be further evaluated. Patient denies a history of blood clots denies any recent travel history [facility] Medical History Alcohol use Thyroid disease Fatty liver TIA (transient ischemic attack) Heartburn History of IBS CPAP (continuous positive airway pressure) dependence Sleep apnea Non-smoker History of echocardiogram History of stress test Hypertension History of irregular heartbeat GERD (gastroesophageal reflux disease) Anxiety Hypothyroid Home Medications ?Medication ?Instructions ?Recorded ?Last Taken ?Type levothyroxine 25 mcg tablet 50 mcg PO DAILY 10/13/21 08/01/22 History omeprazole 20 mg capsule,delayed 20 mg PO DAILY 10/13/21 08/01/22 History release albuterol sulfate 90 mcg/actuation 2 puff inhalation PRN 09/03/23 Unknown History aerosol inhaler albuterol sulfate 90 mcg/actuation 2 puff inhalation Q4H PRN 09/03/23 Unknown Rx aerosol inhaler shortness of breath or wheezing #8.5 grams lysine 1,000 mg tablet 1,000 mg PO DAILY 09/03/23 Unknown History paroxetine HCl 20 mg tablet (Paxil) 40 mg PO DAILY 09/03/23 Unknown History zinc sulfate 50 mg zinc (220 mg) 50 mg PO DAILY 09/03/23 Unknown History tablet budesonide-formoterol HFA 160 2 puff inhalation BID #1 ea 12/05/23 Unknown Rx mcg-4.5 mcg/actuation aerosol inhaler (Symbicort) guaifenesin 1,200 mg tablet, 1,200 mg PO Q12H #60 tabs 12/05/23 Unknown Rx extended release 12 hr prednisone 20 mg tablet 60 mg (3 x 20 mg) PO QDAY #15 tabs 12/05/23 Unknown Rx sodium chloride 0.65 % nasal spray 1 spray intranasal ONCE 12/05/23 Unknown History aerosol (Nasal Moisturizing) spacer #1 ea 12/05/23 Unknown Rx trazodone 50 mg tablet 25 mg PO QHS 12/05/23 Unknown History Allergy/AdvReac Type Severity Reaction Status Date / Time Penicillins AdvReac Hives Verified 06/03/25 11:49 Surgical History History of partial hysterectomy History of endometrial ablation History of History of appendectomy History of cholecystectomy History of cardiac radiofrequency ablation Social History Smoking Status: Never smoker ROS ROS ED ROS Narrative Constitutional: Denies any fevers, chills, headaches Eyes: Denies change in vision double vision Cardiovascular: Complaint chest discomfort as noted above denies palpitations Respiratory: Denies coughing wheezing shortness of breath Abdomen: Denies abdominal pain nausea vomit diarrhea : Denies urinary symptoms Neurological: Denies numbness, weakness, tingling Musculoskeletal: Complains of right shoulder pain as noted above Skin: Denies any rashes or lesions EXAM Physical Exam Narrative Exam Narrative: General: Patient is lying in bed rest comfortably did not appear to be in acute distress Head: Atraumatic, normocephalic Eyes: PERRL bilaterally, EOMI bilaterally, no conjunctival injection noted Neck: Soft, supple, trachea midline Cardiovascular: Regular rate and rhythm Respiratory: Clear to auscultation bilaterally Abdomen: Soft, nondistended, nontender to palpation Extremities: +5/5 strength noted in the bilateral lower extremities, radial pulses +2/4 in the bilateral extremities Neurological: Patient follow commands knew she was at [facility] the year is 2024 Skin: Warm, dry, intact no rashes or lesions noted Const Vital Signs: 06/03/25 11:46 06/03/25 12:36 06/03/25 12:45 Temperature 97.8 F Temperature Source Oral Pulse Rate 76 Respiratory Rate 16 Respiratory Effort Normal Non-Labored Blood Pressure 156/87 H Blood Pressure Mean 110 Pulse Ox 100 Oxygen Delivery Method Room Air Room Air 06/03/25 12:45 06/03/25 13:00 06/03/25 14:00 Temperature Temperature Source Pulse Rate 74 67 70 Respiratory Rate 12 10 L 12 Respiratory Effort Blood Pressure 165/93 H 144/90 H 127/84 H Blood Pressure Mean 117 108 98 Pulse Ox 100 100 100 Oxygen Delivery Method Room Air Room Air 06/03/25 14:49 06/03/25 14:50 06/03/25 15:00 Temperature 99.1 F 98.4 F Temperature Source Oral Pulse Rate 115 H 63 66 Respiratory Rate 33 H 22 H 12 Respiratory Effort Blood Pressure 120/69 138/69 H 133/79 H Blood Pressure Mean 86 92 96 Pulse Ox 100 100 100 Oxygen Delivery Method Room Air MDM MDM MDM Narrative Medical decision making narrative: Patient is a 45-year-old female who presents to the emergency department with a chief complaint of chest pain off and on for 2 days now as well as right shoulder blade pain that has been constant. On the differential diagnose includes but limited to ACS, pneumonia, pneumothorax, aortic dissection, pulmonary embolism. Once workup is obtained reviewed she will be reevaluated. Patient CBC reviewed and showed no evidence leukocytosis white blood cell normal at 6.7, heme was 15.5, plate count 242. Patient D-dimer normal at 0.38, sodium normal 139, potassium is 3.8, creatinine 0.67. Patient's troponin was less than 6 with a delta troponin of less than 6. Patient's EKG reviewed and showed sinus rhythm with a rate of 74 bpm DC interval 154. Patient's proBNP was less than 36. Patient's chest x-ray reviewed by myself and by radiology and showed no acute cardiopulmonary processes. I discussed the results with the patient and she states that she is feeling much better and would like to go home at this point in time. She states that she is not on any blood pressure medication she was advised to keep a log of her blood pressure and take it to her doctor further review to see if she needs to be placed on the antihypertensive. She is advised to return with worsening symptoms or concerns. She is agreeable to plan all question concerns answered she was discharged home in stable condition Lab Data Labs: Laboratory Results - last 24 hr 06/03/25 06/03/25 06/03/25 12:15 13:10 14:07 WBC 6.7 RBC 5.17 Hgb 15.5 H Hct 46.6 MCV 90.1 MCH 30.0 MCHC 33.3 RDW Std Deviation 41.1 RDW Coeff of Maggi 12.5 Plt Count 242 MPV 8.5 Immature Gran % (Auto) 0.600 Neut % (Auto) 63.7 Lymph % (Auto) 24.7 [place] % (Auto) 7.9 Eos % (Auto) 2.5 Baso % (Auto) 0.6 Absolute Neuts (auto) 4.3 Absolute Lymphs (auto) 1.65 Nucleated RBC % 0 D-Dimer Quant (PE/DVT) 0.38 Sodium 139 Potassium 3.8 Chloride 103 Carbon Dioxide 26.1 Anion Gap 10 BUN 16 Creatinine 0.67 L Estim Creat Clear Calc 118.87 Est GFR (MDRD) Non-Af 109 BUN/Creatinine Ratio 24.0 H Glucose 90 Calcium 9.2 Troponin T High Sens < 6 Troponin T Hi Sens 2 Hr < 6 NT pro BNP II < 36 Radiography Diagnostic Testing: Clinical Impression(s) from Imaging Studies Chest X-Ray 06/03/25 12:45 IMPRESSION: NO ACUTE FINDINGS. Reading Location: [id number] Discharge Plan Triage Chief Complaint: Chest Pain ED Provider: Steve Bear Dx/Rx/DC Orders Clinical Impression: OBDULIA (obstructive sleep apnea), Chest pain, Right shoulder pain Prescriptions: No Action paroxetine HCl [Paxil] 20 mg tablet 40 mg PO DAILY albuterol sulfate 90 mcg/actuation HFA aerosol inhaler 2 puff inhalation PRN Patient Comments: inhale 2 puffs by mouth every 4 hours if needed for wheezing lysine 1,000 mg tablet 1,000 mg PO DAILY zinc sulfate 50 mg zinc (220 mg) tablet 50 mg PO DAILY albuterol sulfate 90 mcg/actuation HFA aerosol inhaler 2 puff inhalation Q4H PRN (Reason: shortness of breath or wheezing) Qty: 8.5 6RF Rx Instructions: administer with spacer trazodone 50 mg tablet 25 mg PO QHS Nasal Moisturizing 0.65 % aerosol,spray 1 spray intranasal ONCE budesonide-formoterol [Symbicort] 160-4.5 mcg/actuation HFA aerosol inhaler 2 puff inhalation BID Qty: 1 3RF Rx Instructions: administer with spacer, rinse mouth after each use (DME) spacer See Rx Instructions .ROUTE .MEDSUPPLY Qty: 1 0RF Rx Instructions: As directed prednisone 20 mg tablet 60 mg PO QDAY Qty: 15 0RF Rx Instructions: administer with food or milk guaifenesin 1,200 mg tablet extended release 12hr 1,200 mg PO Q12H Qty: 60 6RF levothyroxine 25 mcg tablet 50 mcg PO DAILY Patient Comments: take 1 tablet by mouth once daily omeprazole 20 mg capsule,delayed release(DR/EC) 20 mg PO DAILY Primary Care Provider: Diana Kulkarni Referrals: Diana Kulkarni, [employer] [Primary Care Provider, Family Practice] Activity Restrictions/Additional Instructions: Your blood work did not show any acute findings here in the emergency department. Follow-up your doctor in the outpatient setting. Take your blood pressure randomly 2-3 times a day write down what your blood pressure was and take this to their doctor for their review to see if you need to be placed on blood pressure medication. Return with worsening symptoms or any other concerns Print Language: Wallisian Disposition Disposition: Home, Self Care
[2025-06-03 12:28] LABS: Hematocrit 46.6 % (37-47); Hemoglobin 15.5 g/dL (12.0-15.0); Immature Granulocytes Count 0.040 X10^3/uL (0.0-0.0); Mean Corp Hgb Conc 33.3 g/dL (32-36); Mean Corpuscular Volume 90.1 fL (81-99); Mean Platelet Vol. 8.5 fl (6.2-12.0); NRBC Flagged by Analyzer 0 % (0-5); Platelet Count 242 K/mm3 (150-450); RBC Distribution Width CV 12.5 % (11.6-14.6); RBC Distribution Width SD 41.1 fl (35.1-43.9); Red Blood Count 5.17 M/mm3 (4.2-5.4); White Blood Count 6.7 K/mm3 (4.4-11.0)
[2025-06-03] MEDS: 0.9% Normal Saline (1000mL) 1,000 ML 999 ML IV (12:43)
--- NOTE | 2025-06-03 12:45 | RAD_ITS ---
PROCEDURE: RAD/Chest PA and Lateral
[2025-06-03 12:46] LABS: Troponin T High Sensitivity < 6 ng/L (<=14)
[2025-06-03 12:47] LABS: Anion Gap 10 (5-15); BUN 16 mg/dL (4-19); BUN/Creat Ratio 24.0 RATIO (10-20); Calcium,Total 9.2 mg/dL (7.6-11.0); Carbon Dioxide 26.1 mmol/L (21.0-32.0); Chloride 103 mmol/L (98-108); Estimated Creatinine Clearance 118.87 ml/min (50-250); Glucose 90 mg/dL (70-99); Potassium 3.8 mmol/L (3.3-5.1)
[2025-06-03 12:53] LABS: Pro- Brain NATRIURETIC PEPTIDE < 36 pg/mL (<=450)
[2025-06-03 13:38] LABS: D-Dimer Quantitative (DVT/PE) 0.38 FEU/ug/m (0.27-0.49)
[2025-06-03 14:56] LABS: Troponin T High Sens 2 HR < 6 ng/L (<=14)
== END 2025-06-03 15:46 | disposition home or self-care (01) ==
PROVIDERS: Emergency Provider Emergency Medicine; PCP Nurse Practitioner Family; Visit Provider Emergency Medicine
DX: R07.9 Chest pain, unspecified (principal); G47.33 Obstructive sleep apnea (adult) (pediatric); F41.9 Anxiety disorder, unspecified; K21.9 Gastro-esophageal reflux disease without esophagitis; M25.511 Pain in right shoulder; I10 Essential (primary) hypertension
CPT/HCPCS: 71046; 80048; 83880; 84484; 85025; 85379; 93005; 96360; 96361; 99284; A4216